=== PATIENT | male | born 1990 | race Two or more races ===

== ENCOUNTER 2019-03-09 10:54 | Emergency (ER) | payer SELFPAY ==
--- NOTE | 2019-03-09 11:33 | ER Document Report ---
ED Medical Screen (RME) - General Chief Complaint: High Blood Sugar Stated Complaint: BLOOD SUGAR ISSUES Time Seen by Provider: 03/09/19 11:25 Mode of Arrival: Ambulatory Information source: Patient Notes: Patient presents to the emergency department with complaints of high blood sugar. Reports he took it first thing this morning was over 400. Ate some crackers forgot to take his metformin. He went to work. He reports he works outside. Checked his sugar twice it was still in the 300s. Patient reports he feels body aches blurred vision. He has been hospitalized in the past for this. Reports he takes insulin at night. I have greeted and performed a rapid initial assessment of this patient. A comprehensive ED assessment and evaluation of the patient, analysis of test results and completion of the medical decision making process will be conducted by additional ED providers. Dictation of this chart was performed using voice recognition software; therefore, there may be some unintended grammatical errors. TRAVEL OUTSIDE OF THE [place] IN LAST 30 DAYS: No - Related Data Allergies/Adverse Reactions: No Known Allergies Allergy (Verified 03/09/19 10:57) Physical Exam - Vital signs Vitals: Temp Pulse Resp BP Pulse Ox 97.9 F 93 15 119/70 99 03/09/19 11:19 03/09/19 11:19 03/09/19 11:19 03/09/19 11:19 03/09/19 11:19 Course - Vital Signs Vital signs: Temp Pulse Resp BP Pulse Ox 97.9 F 93 15 119/70 99 03/09/19 11:19 03/09/19 11:19 03/09/19 11:19 03/09/19 11:19 03/09/19 11:19
[2019-03-09] MEDS ORDERED: NORMAL SALINE 1000 ML 1,000 ML IV ONE ×2 (12:09→13:21)
[2019-03-09 12:23] LABS: VENOUS BLOOD BASE EXCESS 2.1 mmol/L; VENOUS BLOOD HCO3 28.8 mmol/L (20-32); VENOUS BLOOD PCO2 52.8 mmHg (35-63); VENOUS BLOOD PH 7.36 (7.30-7.42)
[2019-03-09 12:24] LABS: ABSOLUTE EOSINOPHILS # (AUTO) 0.2 10^3/uL (0.0-0.6); ABSOLUTE MONOCYTES (AUTO) 0.7 10^3/uL (0.1-1.4); ABSOLUTE NEUT (AUTO) 6.8 10^3/uL (1.7-8.2); BASOPHILS % (AUTO) 0.5 % (0-2); EOSINOPHILS % (AUTO) 2.1 % (0-6); HEMATOCRIT 44.4 % (37.9-51.0); HEMOGLOBIN 15.6 g/dL (13.5-17.0); LYMPHOCYTES % (AUTO) 20.8 % (13-45); MEAN CORPUSCULAR HEMOGLOBIN 30.1 pg (27.0-33.4); MEAN CORPUSCULAR HGB CONC 35.1 g/dL (32.0-36.0); MEAN CORPUSCULAR VOLUME 86 fl (80-97); MONOCYTES % (AUTO) 7.2 % (3-13); PLATELET COUNT 255 10^3/uL (150-450); RED BLOOD COUNT 5.17 10^6/uL (4.35-5.55); RED CELL DISTRIBUTION WIDTH 11.6 % (11.5-14.0); SEGMENTED NEUTROPHILS % (AUTO) 69.4 % (42-78); TOTAL CELLS COUNTED % (AUTO) 100 %; WHITE BLOOD COUNT 9.8 10^3/uL (4.0-10.5)
[2019-03-09 12:33] LABS: APPEARANCE,URINE CLEAR; BILIRUBIN,URINE NEGATIVE (NEGATIVE); COLOR,URINE STRAW; GLUCOSE, URINE >=1000 mg/dL (NEGATIVE); KETONES,URINE 100 mg/dL (NEGATIVE); LEUKOCYTE ESTERASE,URINE NEGATIVE (NEGATIVE); NITRITE,URINE NEGATIVE (NEGATIVE); PROTEIN,URINE NEGATIVE (NEGATIVE); URINE SPECIFIC GRAVITY 1.009; UROBILINOGEN,URINE NEGATIVE mg/dL (<2.0)
[2019-03-09 12:40] LABS: ALANINE AMINOTRANSFERASE 32 U/L (21-72); ALBUMIN 5.4 g/dL (3.5-5.0); ALKALINE PHOSPHATASE 114 U/L (38-126); ANION GAP 17 (5-19); ASPARTATE AMINO TRANSFERASE 26 U/L (17-59); BILIRUBIN,DIRECT 0.3 mg/dL (0.0-0.4); BILIRUBIN,TOTAL 0.9 mg/dL (0.2-1.3); BLOOD UREA NITROGEN 21 mg/dL (7-20); CALCIUM 10.8 mg/dL (8.4-10.2); CARBON DIOXIDE 27 mmol/L (22-30); CHLORIDE 89 mmol/L (98-107); GLUCOSE 337 mg/dL (75-110); POTASSIUM 4.1 mmol/L (3.6-5.0); SODIUM 133.4 mmol/L (137-145); TOTAL PROTEIN 8.5 g/dL (6.3-8.2)
[2019-03-09] MEDS ORDERED: NORMAL SALINE 100 ML with INSULIN REGULAR, HUMAN 100 UNIT IV PRN ×2 (13:00)
--- NOTE | 2019-03-09 13:03 | ER Document Report ---
ED General - General Chief Complaint: High Blood Sugar Stated Complaint: BLOOD SUGAR ISSUES Time Seen by Provider: 03/09/19 11:25 Mode of Arrival: Ambulatory TRAVEL OUTSIDE OF THE [place] IN LAST 30 DAYS: No - HPI Patient complains to provider of: weakness, high blood sugar Notes: Insulin-dependent diabetic presents with increasing weakness fatigue elevated blood glucose. Patient has not had asked him to his insulin for some time. Recently moved down here from [facility]. Does not have insurance cannot afford his insulin. Denies chest pain - Related Data Allergies/Adverse Reactions: No Known Allergies Allergy (Verified 03/09/19 10:57) Past Medical History - General Information source: Patient - Social History Smoking Status: Current Every Day Smoker Family History: None Patient has suicidal ideation: No Patient has homicidal ideation: No Endocrine Medical History: Reports: Hx Diabetes Mellitus Type 1, Hx Diabetes Mellitus Type 2 Renal/ Medical History: Denies: Hx Peritoneal Dialysis Review of Systems - Review of Systems Notes: REVIEW OF SYSTEMS: CONSTITUTIONAL: -fevers, -chills EENT: -eye pain, -difficulty swallowing, -nasal congestion CARDIOVASCULAR: -chest pain, -syncope. RESPIRATORY: -cough, -SOB GASTROINTESTINAL: -abdominal pain, -nausea, -vomiting, -diarrhea GENITOURINARY: -dysuria, -hematuria MUSCULOSKELETAL: -back pain, -neck pain SKIN: -rash or skin lesions. HEMATOLOGIC: -easy bruising or bleeding. LYMPHATIC: -swollen, enlarged glands. NEUROLOGICAL: -altered mental status or loss of consciousness, -headache, - neurologic symptoms PSYCHIATRIC: -anxiety, -depression. ALL OTHER SYSTEMS REVIEWED AND NEGATIVE. Physical Exam - Vital signs Vitals: Temp Pulse Resp BP Pulse Ox 97.9 F 93 15 119/70 99 03/09/19 11:19 03/09/19 11:19 03/09/19 11:19 03/09/19 11:19 03/09/19 11:19 - Notes Notes: PHYSICAL EXAMINATION: GENERAL: Well-appearing, well-nourished and in severe acute distress. HEAD: Atraumatic, normocephalic. EYES: Pupils equal round and reactive to light, extraocular movements intact, sclera anicteric, conjunctiva are normal. ENT: nares patent, oropharynx clear without exudates. Moist mucous membranes. NECK: Normal range of motion, supple without lymphadenopathy LUNGS: Breath sounds clear to auscultation bilaterally and equal. No wheezes rales or rhonchi. HEART: tachycardia and rhythm without murmurs ABDOMEN: Soft, nontender, normoactive bowel sounds. No guarding, no rebound. No masses appreciated. EXTREMITIES: Normal range of motion, no pitting or edema. No cyanosis. NEUROLOGICAL: Cranial nerves grossly intact. Normal speech, normal gait. Normal sensory and motor exams. PSYCH: Normal mood, normal affect. SKIN: Warm, Dry, normal turgor, no rashes or lesions noted. Course - Re-evaluation Re-evalutation: 03/09/19 13:58 Vertically ill-appearing 29-year-old male presents with profound elevation in blood glucose, ketones in his urine and anion gap of 17. Patient given ample fluid resuscitation and began insulin therapy. Patient is new to the community. He is adamant he does not want to be admitted to the hospital. Have extensive conversation with patient regarding his critical condition of this could have rapid decline. Patient persists. Patient's is bedside she agrees he has decision-making capacity they will be leaving Patient's recheck glucose markedly improved as are his symptoms. No leg weakness. Patient will be discharged home improved follow-up at his family doctor. Given strict return precautions anything should change please return - Vital Signs Vital signs: Temp Pulse Resp BP Pulse Ox 97.9 F 93 15 119/70 99 03/09/19 11:19 03/09/19 11:19 03/09/19 11:19 03/09/19 11:19 03/09/19 11:19 - Laboratory Result Diagrams: 03/09/19 12:09 03/09/19 12:09 Laboratory results interpreted by me: 03/09/19 03/09/19 03/09/19 11:56 12:07 12:09 Sodium 133.4 L Chloride 89 L BUN 21 H Glucose 337 H POC Glucose 358 H Calcium 10.8 H Total Protein 8.5 H Albumin 5.4 H Urine Glucose (UA) >=1000 H Urine Ketones 100 H Urine Blood LARGE H Critical Care Note - Critical Care Note Total time excluding time spent on procedures (mins): 38 Discharge - Discharge Clinical Impression: Hyperglycemia DKA (diabetic ketoacidoses) Qualifiers: Diabetes mellitus type: other specified (including ROSIE) Diabetes mellitus complication detail: without coma Qualified Code(s): E13.10 - Other specified diabetes mellitus with ketoacidosis without coma Condition: Stable Disposition: HOME, SELF-CARE Admitting Provider: diSCHARGED Unit Admitted: Telemetry Instructions: Hyperglycemia ([facility]) Referrals: CONY JALLOH FNP-C [NO LOCAL MD] - Follow up as needed
[2019-03-09] MEDS ORDERED: INSULIN REG, HUMAN 100 UNIT/ML 3 ML VIAL (PYX) IV ONE (13:20)
[2019-03-09 15:05] VITALS: BP 102/61
== END 2019-03-09 15:05 | disposition home or self-care (01) ==
LOC: ER 10:54
DX: E11.10 Type 2 diabetes mellitus with ketoacidosis without coma (principal); T38.3X6A Underdosing of insulin and oral hypoglycemic [antidiabetic] drugs, initial encounter; Z91.120 Patient's intentional underdosing of medication regimen due to financial hardship; Z91.14 Patient's other noncompliance with medication regimen; R53.1 Weakness; R53.83 Other fatigue; F17.200 Nicotine dependence, unspecified, uncomplicated; R00.0 Tachycardia, unspecified
CPT/HCPCS: 99291; 96360; 36415; 82962; 85025; 80053; 81001; 82803; J1815; J7030

== ENCOUNTER 2019-05-09 10:06 | Inpatient (IN) | payer MEDICAID ==
[2019-05-09] MEDS ORDERED: NORMAL SALINE 1000 ML 1,000 ML IV ONE ×2 (10:07→10:20)
[2019-05-09] MEDS ORDERED: ONDANSETRON HCL INJ/PF 4 MG/2 ML SDV IV ONE (10:19)
[2019-05-09 10:28] LABS: HEMATOCRIT 47.5 % (37.9-51.0); HEMOGLOBIN 16.5 g/dL (13.5-17.0); MEAN CORPUSCULAR HGB CONC 34.7 g/dL (32.0-36.0); MEAN CORPUSCULAR VOLUME 87 fl (80-97); PLATELET COUNT 281 10^3/uL (150-450); RED BLOOD COUNT 5.48 10^6/uL (4.35-5.55); RED CELL DISTRIBUTION WIDTH 12.1 % (11.5-14.0); WHITE BLOOD COUNT 20.2 10^3/uL (4.0-10.5)
--- NOTE | 2019-05-09 10:29 | ER Document Report ---
Entered by IKER MARTIN SCRIBE 05/09/19 1025 Acting as scribe for:JAZ SHEETS MD ED Blood Pressure Problem - General Stated Complaint: BLOOD SUGAR ISSUES Time Seen by Provider: 05/09/19 10:15 Primary Care Provider: YOHANA SEBASTIAN FNP- [Primary Care Provider] - Follow up as needed Information source: Patient, Relative Notes: Patient is a 29 year old male that presents to the emergency department today with complaints of vomiting x1 week with elevated BGLs for several days. When asked what his sugars have been running, the patient states "high". Patient is not out of insulin, stating he took 20 units of Novolin R this morning prior to arrival. Patient denies any fevers or diarrhea. TRAVEL OUTSIDE OF THE [place] IN LAST 30 DAYS: No - Related Data Allergies/Adverse Reactions: No Known Allergies Allergy (Verified 03/09/19 10:57) Past Medical History - General Information source: Patient - Social History Smoking Status: Unknown if Ever Smoked Frequency of alcohol use: None Drug Abuse: None Lives with: Family Family History: None Endocrine Medical History: Reports: Hx Diabetes Mellitus Type 1, Hx Diabetes Mellitus Type 2 Review of Systems - Review of Systems Constitutional: See HPI, Other - elevated blood sugars x1 week. denies: Fever EENT: No symptoms reported Cardiovascular: No symptoms reported Respiratory: No symptoms reported Gastrointestinal: See HPI, Nausea, Vomiting. denies: Diarrhea Genitourinary: No symptoms reported Male Genitourinary: No symptoms reported Musculoskeletal: No symptoms reported Skin: No symptoms reported Hematologic/Lymphatic: No symptoms reported Neurological/Psychological: No symptoms reported -: Yes All other systems reviewed and negative Physical Exam - Vital signs Vitals: Resp Pulse Ox 19 100 05/09/19 10:09 05/09/19 10:09 - Notes Notes: Physical Exam: General: Alert, strong ketone odor. HEENT: Normocephalic. Atraumatic. PERRL. Extraocular movements intact. Oropharynx clear. Very dry mucous membranes, lips are cracked. Eyes sunken back into face. Neck: Supple. Non-tender. Respiratory: No respiratory distress. Clear and equal breath sounds bilaterally. Cardiovascular: Tachycardic, regular rhythm. Abdominal: Normal Inspection. Non-tender. No distension. Normal Bowel Sounds. Back: No gross abnormalities. Extremities: Moves all four extremities. Upper extremities: Normal inspection. Normal ROM. Lower extremities: Normal inspection. No edema. Normal ROM. Neurological: Normal cognition. AAOx4. Normal speech. Psychological: Normal affect. Normal Mood. Skin: Warm. Dry. Normal color. Course - Vital Signs Vital signs: Temp Pulse Resp BP Pulse Ox 98.4 F 21 H 144/92 H 100 05/09/19 10:14 05/09/19 10:14 05/09/19 10:14 05/09/19 10:14 - Laboratory Result Diagrams: 05/09/19 10:10 05/09/19 10:10 Laboratory results interpreted by me: 05/09/19 05/09/19 05/09/19 10:10 10:10 10:49 WBC 20.2 H Seg Neuts % (Manual) 88 H Lymphocytes % (Manual) 8 L Abs Neuts (Manual) 17.8 H Sodium 129.0 L Chloride 79 L Carbon Dioxide 20 L Anion Gap 30 H BUN 42 H Glucose 394 H Magnesium 2.8 H Total Bilirubin 1.4 H Albumin 5.3 H Urine Glucose (UA) >=500 H Urine Ketones 80 H Urine Blood MODERATE H - EKG Interpretation by Me EKG shows normal: Sinus rhythm, [place], QRS Complexes, ST-T Waves. abnormal: Intervals - Borderline prolonged QT interval Rate: Tachycardia - 107 - Consults Dr. Chaudhary Time consulted: 11:45 Consulted provider: will come to ER Critical Care Note - Critical Care Note Total time excluding time spent on procedures (mins): 35 Discharge - Discharge Clinical Impression: Hyperglycemia, Dehydration, Acute kidney injury Nausea and vomiting Qualifiers: Vomiting type: unspecified Vomiting Intractability: non-intractable Qualified Code(s): R11.2 - Nausea with vomiting, unspecified Diabetic ketoacidosis associated with type 2 diabetes mellitus Qualifiers: Diabetes mellitus complication detail: without coma Qualified Code(s): E11.10 - Type 2 diabetes mellitus with ketoacidosis without coma Condition: Stable Disposition: ADMITTED INPATIENT Admitting Provider: Neena (Hospitalist) Unit Admitted: IMCU Referrals: YOHANA SEBASTIAN, [employer] [Primary Care Provider] - Follow up as needed Scribe Attestation: 05/09/19 11:50 I personally performed the services described in the documentation, reviewed and edited the documentation which was dictated to the scribe in my presence, and it accurately records my words and actions. I personally performed the services described in the documentation, reviewed and edited the documentation which was dictated to the scribe in my presence, and it accurately records my words and actions.
[2019-05-09 10:47] LABS: ABSOLUTE LYMPHOCYTES# (MANUAL) 1.6 10^3/uL (0.5-4.7); ABSOLUTE MONOCYTES # (MANUAL) 0.8 10^3/uL (0.1-1.4); ALBUMIN 5.3 g/dL (3.5-5.0); ALKALINE PHOSPHATASE 117 U/L (38-126); ASPARTATE AMINO TRANSFERASE 22 U/L (17-59); BASOPHILS % (MANUAL) 0 % (0-2); BILIRUBIN,DIRECT 0.3 mg/dL (0.0-0.4); BILIRUBIN,TOTAL 1.4 mg/dL (0.2-1.3); BLOOD UREA NITROGEN 42 mg/dL (7-20); CALCIUM 10.1 mg/dL (8.4-10.2); CARBON DIOXIDE 20 mmol/L (22-30); EOSINOPHILS % (MANUAL) 0 % (0-6); GLUCOSE 394 mg/dL (75-110); LYMPHOCYTES % (MANUAL) 8 % (13-45); MONOCYTES % (MANUAL) 4 % (3-13); POTASSIUM 3.8 mmol/L (3.6-5.0); SEGMENTED NEUTROPHILS % (MAN) 88 % (42-78); TOTAL CELLS COUNTED 100; TOTAL PROTEIN 8.2 g/dL (6.3-8.2)
[2019-05-09 10:48] LABS: OVALOCYTES SLIGHT; PLATELET COMMENT ADEQUATE; POIKILOCYTOSIS SLIGHT
[2019-05-09 10:51] LABS: CHLORIDE 79 mmol/L (98-107)
[2019-05-09 10:56] LABS: ANION GAP 30 (5-19)
[2019-05-09] MEDS ORDERED: RINGERS SOLUTION,LACTATED 1,000 ML IV ONE (11:03)
[2019-05-09 11:05] LABS: APPEARANCE,URINE CLEAR; BILIRUBIN,URINE NEGATIVE (NEGATIVE); COLOR,URINE YELLOW; GLUCOSE, URINE >=500 mg/dL (NEGATIVE); KETONES,URINE 80 mg/dL (NEGATIVE); LEUKOCYTE ESTERASE,URINE NEGATIVE (NEGATIVE); NITRITE,URINE NEGATIVE (NEGATIVE); PROTEIN,URINE NEGATIVE (NEGATIVE); URINE SPECIFIC GRAVITY 1.023; UROBILINOGEN,URINE NEGATIVE mg/dL (<2.0)
[2019-05-09 12:15] LABS: URINE AMPHETAMINES SCREEN NEGATIVE; URINE BARBITURATES SCREEN NEGATIVE; URINE BENZODIAZEPINES SCREEN NEGATIVE; URINE COCAINE SCREEN NEGATIVE; URINE MARIJUANA (THC) SCREEN UNCONFIRMED POSITIVE; URINE METHADONE SCREEN NEGATIVE; URINE PHENCYCLIDINE SCREEN NEGATIVE
[2019-05-09] MEDS ORDERED: ACETAMINOPHEN 325 MG TABLET PO PRN (12:26)
[2019-05-09] MEDS ORDERED: DEXTROSE 50%-WATER 25 GM/50 ML DISP.SYRIN IV PRN ×2 (12:31)
[2019-05-09] MEDS ORDERED: DEXTROSE 40% GEL 15 GM TUBE PO PRN ×2 (12:31)
[2019-05-09] MEDS ORDERED: GLUCAGON,HUMAN RECOMB 1 MG INJ IM PRN (12:31)
--- NOTE | 2019-05-09 12:47 | PDOC H&P ---
History of Present Illness Admission Date/PCP: YOHANA SEBASTIAN, SUME[facility]INA Patient complains of: Nausea vomiting for 6 days History of Present Illness: OLIVIA DRISCOLL is a 29 year old male history of type 2 diabetes mellitus, depression came to the emergency room with complaints of nausea vomiting associated with abdominal pain normal bowel movement for last 6 days. Patient barely able to drink water and throwing up everything else. Denies any fever but complaining of dry cough associated with chills and sweats. Denies any rashes. Denies any problems with urination. He said he is compliant with his medications and it and took his insulin this morning. Work-up in the emergency room indicates blood sugar of 394 and serum sodium of 129 and creatinine of 1.24 with urine ketones more than 80. Medical consult was called for admission. 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 Children Family History Reviewed: Yes Sibling(s) Family History Reviewed.: Yes Medication/Allergy Allergies/Adverse Reactions: No Known Allergies Allergy (Verified 03/09/19 10:57) Review of Systems Constitutional: PRESENT: fatigue, weakness. ABSENT: fever(s), weight gain, weight loss Eyes: ABSENT: visual disturbances Ears: ABSENT: hearing changes Nose, Mouth, and Throat: ABSENT: sore throat Cardiovascular: ABSENT: palpitations Respiratory: ABSENT: hemoptysis Gastrointestinal: PRESENT: abdominal pain, constipation, nausea, vomiting Genitourinary: ABSENT: dysuria, hematuria Musculoskeletal: ABSENT: joint swelling Integumentary: ABSENT: rash, wounds Neurological: ABSENT: abnormal gait, abnormal speech, confusion, dizziness, focal weakness, syncope Psychiatric: ABSENT: anxiety, depression, homidical ideation, suicidal ideation Endocrine: ABSENT: cold intolerance, heat intolerance, polydipsia, polyuria Physical Exam Vital Signs: Temp Pulse Resp BP Pulse Ox 97.6 F 18 130/86 H 99 05/09/19 12:00 05/09/19 12:01 05/09/19 12:00 05/09/19 12:01 Intake & Output 05/08/19 05/09/19 05/10/19 06:59 06:59 06:59 Intake Total 3000 Balance 3000 Weight 69.853 kg General appearance: PRESENT: other - Moderate distress Head exam: PRESENT: atraumatic Eye exam: PRESENT: PERRLA Ear exam: PRESENT: normal external ear exam Mouth exam: PRESENT: neck supple Neck exam: ABSENT: carotid bruit, JVD, lymphadenopathy, thyromegaly Respiratory exam: PRESENT: decreased breath sounds Cardiovascular exam: PRESENT: RRR. ABSENT: diastolic murmur, rubs, systolic mu rmur GI/Abdominal exam: PRESENT: normal bowel sounds, soft. ABSENT: distended, guarding, mass, organolmegaly, rebound, tenderness Rectal exam: PRESENT: deferred Extremities exam: PRESENT: full ROM. ABSENT: calf tenderness, clubbing, pedal edema Neurological exam: PRESENT: alert, awake, oriented to person, oriented to place, oriented to time, oriented to situation, CN II-XII grossly intact. ABSENT: motor sensory deficit Psychiatric exam: PRESENT: appropriate affect, normal mood. ABSENT: homicidal ideation, suicidal ideation Results Laboratory Results: 05/09/19 10:10 05/09/19 10:10 05/09/19 05/09/19 05/09/19 10:10 10:10 10:49 WBC 20.2 H RBC 5.48 Hgb 16.5 Hct 47.5 MCV 87 MCH 30.0 MCHC 34.7 RDW 12.1 Plt Count 281 Seg Neutrophils % Not Reportable Sodium 129.0 L Potassium 3.8 Chloride 79 L Carbon Dioxide 20 L Anion Gap 30 H BUN 42 H Creatinine 1.24 Est GFR ( Amer) > 60 Glucose 394 H Calcium 10.1 Magnesium 2.8 H Total Bilirubin 1.4 H AST 22 Alkaline Phosphatase 117 Total Protein 8.2 Albumin 5.3 H Urine Color YELLOW Urine Appearance CLEAR Urine pH 6.0 Ur Specific [place] 1.023 Urine Protein NEGATIVE Urine Glucose (UA) >=500 H Urine Ketones 80 H Urine Blood MODERATE H Urine Nitrite NEGATIVE Ur Leukocyte Esterase NEGATIVE Urine WBC (Auto) 2 Urine RBC (Auto) 6 Assessment and Plan - Diagnosis (1) Hyperglycemia Is this a current diagnosis for this admission?: Yes Plan: 05/09/2019-patient came in with high blood sugars associated with nausea and vomitings urinalysis shows ketones of 80 blood sugar of 349 and serum sodium of 129. And creatinine also 1.24. Patient is going to be admitted to [facility] started on normal saline at 125 cc/h, started on diabetic diet, Lantus 15 units twice a day, insulin sliding scale. GI prophylaxis DVT prophylaxis initiated blood cultures urine cultures are requested started on IV Rocephin. Dietary consult was requested. (2) Acute kidney injury Is this a current diagnosis for this admission?: Yes Plan: 05/09/2019-patient came in with acute kidney injury creatinine of 1.24 plan to give him IV fluids normal saline at 125 cc/h. (3) Nausea and vomiting Qualifiers: Vomiting type: unspecified Vomiting Intractability: non-intractable Qualified Code(s): R11.2 - Nausea with vomiting, unspecified Is this a current diagnosis for this admission?: Yes Plan: 05/09/2019-patient came in with complaints of nausea and vomitings's to start the patient on Phenergan 25 mg IV every 6 as needed. Nausea and vomiting's most likely secondary to uncontrolled diabetes mellitus leading to gastroparesis. (4) Hyponatremia Is this a current diagnosis for this admission?: Yes Plan: 05/09/2019-serum sodium is 129, blood sugar is around 400 corrected serum sodium is around 134. Started on normal saline at 125 cc/h. (5) Depression Is this a current diagnosis for this admission?: No Plan: 05/09/2019-patient has history of depression taking Effexor at home plan is to resume Effexor during the hospital stay. - Time Time Spent with patient: 25-34 minutes Medications reviewed and adjusted accordingly: Yes Anticipated discharge: Home
--- NOTE | 2019-05-09 12:50 | Progress Note ---
Provider Note Provider Note: 05/09/19-leukocytosis may be sec to reactive leukocytosis.. sepsis work up started.
--- NOTE | 2019-05-09 13:05 | RADIOLOGY REPORT (SQ) ---
EXAM DESCRIPTION: CHEST SINGLE VIEW COMPLETED DATE/TIME: 05/09/2019 12:53 pm REASON FOR STUDY: shortness of breath COMPARISON: None. NUMBER OF VIEWS: One view. TECHNIQUE: Single frontal radiographic image of the chest acquired. LIMITATIONS: None. FINDINGS: LUNGS AND PLEURA: Stable appearance. MEDIASTINUM AND HILAR STRUCTURES: Stable heart size and mediastinal structures. HEART AND VASCULAR STRUCTURES: Stable appearance. SUPPORT DEVICES: Appropriate location without change. BONES: No acute findings. OTHER: No other significant finding. IMPRESSION: STABLE APPEARANCE OF THE CHEST. SUPPORT DEVICES UNCHANGED. TECHNICAL DOCUMENTATION: JOB ID: [id number] [employer]- All Rights Reserved Reading location - IP/workstation name: [email or web address]
[2019-05-09 13:17] LABS: PROTHROMBIN TIME 15.2 SEC (11.4-15.4)
[2019-05-09] MEDS: NORMAL SALINE 1000 ML 1,000 ML IV PRN ×2 (13:20→22:00)
[2019-05-09] MEDS: PROMETHAZINE HCL INJ 25 MG/1 ML VIAL IV PRN ×3 (13:25→21:02)
[2019-05-09] MEDS: CEFTRIAXONE 2 GM/D5W RTU 2 GM/50 ML RTUPB IV SCH (13:27)
[2019-05-09] MEDS ORDERED: INSULIN GLARGINE,HUM.REC.ANLOG 1,000 UNIT/10 ML VIAL SUBCUT SCH ×2 (13:30→22:00)
[2019-05-09 13:31] LABS: CREATINE KINASE MB 0.38 ng/mL (<4.55)
[2019-05-09 13:34] LABS: TROPONIN I < 0.012 ng/mL
[2019-05-09] MEDS: VENLAFAXINE HCL 37.5 MG CAP.SR.24H PO SCH (13:38)
[2019-05-09] MEDS ORDERED: INSULIN REG, HUMAN 100 UNIT/ML 3 ML VIAL (PYX) ONE (13:45)
[2019-05-09] MEDS ORDERED: INSULIN REG, HUMAN 100 UNIT/ML 3 ML VIAL (PYX) SUBCUT ONE (13:46)
[2019-05-09 14:48] LABS: ARTERIAL BLOOD BASE EXCESS 2.6 mmol/L; ARTERIAL BLOOD H2CO3 0.63 mmol/L (1.05-1.35); ARTERIAL BLOOD HCO3 21.4 mmol/L (20-24); ARTERIAL BLOOD O2 SATURATION 98.8 % (94-98); ARTERIAL BLOOD PO2 110.2 mmHg (80-100); ARTERIAL BLOOD TOTAL CO2 22.1 mmol/L (23-27)
[2019-05-09 14:50] LABS: ARTERIAL BLOOD FIO2 ROOM AIR
[2019-05-09 14:51] LABS: ARTERIAL BLOOD PCO2 20.9 mmHg (35-45); ARTERIAL BLOOD PH 7.63 (7.35-7.45)
[2019-05-09] MEDS: PANTOPRAZOLE SODIUM 40 MG TABLET.DR PO SCH (16:38)
[2019-05-09] MEDS: INSULIN REG, HUMAN 100 UNIT/ML 3 ML VIAL (PYX) SUBCUT SCH ×2 (16:38→21:45)
[2019-05-09 19:43] LABS: CREATINE KINASE MB 0.25 ng/mL (<4.55); TROPONIN I 0.012 ng/mL
[2019-05-09] MEDS: INSULIN GLARGINE,HUM.REC.ANLOG 1,000 UNIT/10 ML VIAL SUBCUT SCH (22:10)
[2019-05-10 01:46] LABS: TROPONIN I 0.015 ng/mL
[2019-05-10 01:54] LABS: CREATINE KINASE MB < 0.22 ng/mL (<4.55)
[2019-05-10] MEDS: PROMETHAZINE HCL INJ 25 MG/1 ML VIAL IV PRN ×2 (01:57→05:59)
[2019-05-10] MEDS: PANTOPRAZOLE SODIUM 40 MG TABLET.DR PO SCH ×2 (05:58→18:37)
[2019-05-10] MEDS: NORMAL SALINE 1000 ML 1,000 ML IV PRN (06:04)
[2019-05-10 06:52] LABS: APPEARANCE,URINE CLEAR; BILIRUBIN,URINE NEGATIVE (NEGATIVE); COLOR,URINE YELLOW; GLUCOSE, URINE 50 mg/dL (NEGATIVE); KETONES,URINE 80 mg/dL (NEGATIVE); LEUKOCYTE ESTERASE,URINE NEGATIVE (NEGATIVE); NITRITE,URINE NEGATIVE (NEGATIVE); PROTEIN,URINE NEGATIVE (NEGATIVE); URINE SPECIFIC GRAVITY 1.015; UROBILINOGEN,URINE NEGATIVE mg/dL (<2.0)
[2019-05-10 08:23] LABS: ABSOLUTE LYMPHOCYTES (AUTO) 1.4 10^3/uL (0.5-4.7); ABSOLUTE MONOCYTES (AUTO) 0.8 10^3/uL (0.1-1.4); ABSOLUTE NEUT (AUTO) 8.2 10^3/uL (1.7-8.2); BASOPHILS % (AUTO) 0.1 % (0-2); EOSINOPHILS % (AUTO) 0.1 % (0-6); HEMATOCRIT 39.1 % (37.9-51.0); LYMPHOCYTES % (AUTO) 13.6 % (13-45); MEAN CORPUSCULAR HEMOGLOBIN 30.7 pg (27.0-33.4); MEAN CORPUSCULAR VOLUME 88 fl (80-97); PLATELET COUNT 173 10^3/uL (150-450); RED BLOOD COUNT 4.45 10^6/uL (4.35-5.55); RED CELL DISTRIBUTION WIDTH 11.9 % (11.5-14.0); SEGMENTED NEUTROPHILS % (AUTO) 78.2 % (42-78); TOTAL CELLS COUNTED % (AUTO) 100 %; WHITE BLOOD COUNT 10.6 10^3/uL (4.0-10.5)
[2019-05-10 08:25] LABS: HEMOGLOBIN 13.7 g/dL (13.5-17.0)
[2019-05-10 08:36] LABS: ALBUMIN 3.8 g/dL (3.5-5.0); ALKALINE PHOSPHATASE 71 U/L (38-126); ANION GAP 11 (5-19); ASPARTATE AMINO TRANSFERASE 17 U/L (17-59); BILIRUBIN,DIRECT 0.2 mg/dL (0.0-0.4); BILIRUBIN,TOTAL 0.7 mg/dL (0.2-1.3); CARBON DIOXIDE 27 mmol/L (22-30); CHLORIDE 97 mmol/L (98-107); CHOLESTEROL 146.38 mg/dL (0-200); GLUCOSE 134 mg/dL (75-110); POTASSIUM 3.4 mmol/L (3.6-5.0); TOTAL PROTEIN 6.1 g/dL (6.3-8.2); TRIGLYCERIDES 91 mg/dL (<150)
[2019-05-10 08:47] LABS: DIRECT LDL 89 mg/dL (<100)
[2019-05-10 08:51] LABS: BLOOD UREA NITROGEN 18 mg/dL (7-20)
[2019-05-10] MEDS ORDERED: (PENDING PHARMACY ID) (Hydroxyzine Hcl [Atarax 25 Mg Tablet] 25 MG) PO PRN (10:00)
[2019-05-10] MEDS ORDERED: MAG HYDROX/AL HYDROX/SIMETH SUSP 30 ML UDCUP PO PRN (10:00)
[2019-05-10] MEDS ORDERED: ONDANSETRON HCL INJ/PF 4 MG/2 ML SDV IV PRN (10:00)
--- NOTE | 2019-05-10 10:05 | PDOC PROGRESS REPORT ---
Subjective Progress Note for:: 05/10/19 Subjective:: 29 year old male history of type 2 diabetes mellitus, depression came to the emergency room with complaints of nausea vomiting associated with abdominal pain normal bowel movement for last 6 days. Patient barely able to drink water and throwing up everything else. Denies any fever but complaining of dry cough associated with chills and sweats. Denies any rashes. Denies any problems with urination. He said he is compliant with his medications and it and took his insulin this morning. Work-up in the emergency room indicates blood sugar of 394 and serum sodium of 129 and creatinine of 1.24 with urine ketones more than 80. Medical consult was called for admission. 05/10/2019-no acute events in the last 24 hours. Patient is afebrile. Blood sugars are much better. Hemoglobin A1c came back 10.2. Latest blood sugar is 134. Plan is to continue the present management. Reason For Visit: HYPERGLYCEMIA,NAUSEA AND VOMITING,DEHYDRATION Physical Exam Vital Signs: Temp Pulse Resp BP Pulse Ox 99.4 F 97 22 H 121/72 98 05/10/19 05:24 05/10/19 07:00 05/10/19 05:24 05/10/19 05:24 05/10/19 05:24 Intake & Output 05/09/19 05/10/19 05/11/19 06:59 06:59 06:59 Intake Total 5750 Output Total 1300 Balance 4450 Weight 68.4 kg General appearance: PRESENT: no acute distress, cooperative Head exam: PRESENT: atraumatic Eye exam: PRESENT: PERRLA Mouth exam: PRESENT: moist, tongue midline Teeth exam: PRESENT: poor dentation Neck exam: ABSENT: carotid bruit, JVD, lymphadenopathy, thyromegaly Respiratory exam: PRESENT: decreased breath sounds Cardiovascular exam: PRESENT: RRR. ABSENT: diastolic murmur, rubs, systolic murmur GI/Abdominal exam: PRESENT: normal bowel sounds, soft. ABSENT: distended, guarding, mass, organolmegaly, rebound, tenderness Rectal exam: PRESENT: deferred Extremities exam: PRESENT: full ROM. ABSENT: calf tenderness, clubbing, pedal edema Neurological exam: PRESENT: alert, awake, oriented to person, oriented to place, oriented to time, oriented to situation, CN II-XII grossly intact. ABSENT: motor sensory deficit Psychiatric exam: PRESENT: appropriate affect, normal mood. ABSENT: homicidal ideation, suicidal ideation Results Laboratory Results: 05/10/19 07:50 05/10/19 07:50 05/09/19 05/09/19 05/09/19 10:10 10:10 10:49 WBC 20.2 H RBC 5.48 Hgb 16.5 Hct 47.5 MCV 87 MCH 30.0 MCHC 34.7 RDW 12.1 Plt Count 281 Seg Neutrophils % Not Reportable Carbonic Acid HCO3/H2CO3 Ratio ABG pH ABG pCO2 ABG pO2 ABG HCO3 ABG O2 Saturation ABG Base Excess FiO2 Sodium 129.0 L Potassium 3.8 Chloride 79 L Carbon Dioxide 20 L Anion Gap 30 H BUN 42 H Creatinine 1.24 Est GFR ( Amer) > 60 Glucose 394 H Calcium 10.1 Magnesium 2.8 H Total Bilirubin 1.4 H AST 22 Alkaline Phosphatase 117 Total Protein 8.2 Albumin 5.3 H Triglycerides Cholesterol LDL Cholesterol Direct VLDL Cholesterol HDL Cholesterol TSH Urine Color YELLOW Urine Appearance CLEAR Urine pH 6.0 Ur Specific Morton 1.023 Urine Protein NEGATIVE Urine Glucose (UA) >=500 H Urine Ketones 80 H Urine Blood MODERATE H Urine Nitrite NEGATIVE Ur Leukocyte Esterase NEGATIVE Urine WBC (Auto) 2 Urine RBC (Auto) 6 05/09/19 05/10/19 05/10/19 14:40 06:08 07:50 WBC 10.6 H RBC 4.45 Hgb 13.7 D Hct 39.1 MCV 88 MCH 30.7 MCHC 35.0 RDW 11.9 Plt Count 173 Seg Neutrophils % 78.2 H Carbonic Acid 0.63 L HCO3/H2CO3 Ratio 33:1 ABG pH 7.63 H* ABG pCO2 20.9 L* ABG pO2 110.2 H ABG HCO3 21.4 ABG O2 Saturation 98.8 H ABG Base Excess 2.6 FiO2 ROOM AIR Sodium Potassium Chloride Carbon Dioxide Anion Gap BUN Creatinine Est GFR ( Amer) Glucose Calcium Magnesium Total Bilirubin AST Alkaline Phosphatase Total Protein Albumin Triglycerides Cholesterol LDL Cholesterol Direct VLDL Cholesterol HDL Cholesterol TSH Urine Color YELLOW Urine Appearance CLEAR Urine pH 7.0 Ur Specific Morton 1.015 Urine Protein NEGATIVE Urine Glucose (UA) 50 H Urine Ketones 80 H Urine Blood NEGATIVE Urine Nitrite NEGATIVE Ur Leukocyte Esterase NEGATIVE Urine WBC (Auto) 1 Urine RBC (Auto) 2 05/10/19 05/10/19 07:50 07:50 WBC RBC Hgb Hct MCV MCH MCHC RDW Plt Count Seg Neutrophils % Carbonic Acid HCO3/H2CO3 Ratio ABG pH ABG pCO2 ABG pO2 ABG HCO3 ABG O2 Saturation ABG Base Excess FiO2 Sodium 134.7 L Potassium 3.4 L Chloride 97 L Carbon Dioxide 27 Anion Gap 11 BUN 18 D Creatinine 0.84 Est GFR ( Amer) > 60 Glucose 134 H Calcium 9.0 Magnesium 2.4 H Total Bilirubin 0.7 AST 17 Alkaline Phosphatase 71 Total Protein 6.1 L Albumin 3.8 Triglycerides 91 Cholesterol 146.38 LDL Cholesterol Direct 89 VLDL Cholesterol 18.0 HDL Cholesterol 45 TSH 0.34 L Urine Color Urine Appearance Urine pH Ur Specific Morton Urine Protein Urine Glucose (UA) Urine Ketones Urine Blood Urine Nitrite Ur Leukocyte Esterase Urine WBC (Auto) Urine RBC (Auto) 05/09/19 05/09/19 05/09/19 10:10 10:10 18:58 Creatine Kinase 109 106 CK-MB (CK-2) 0.38 Troponin I < 0.012 05/09/19 05/10/19 05/10/19 18:58 00:58 00:58 Creatine Kinase 81 CK-MB (CK-2) 0.25 < 0.22 Troponin I 0.012 0.015 Impressions: Chest X-Ray 05/09/19 12:30 IMPRESSION: STABLE APPEARANCE OF THE CHEST. SUPPORT DEVICES UNCHANGED. Assessment and Plan - Diagnosis (1) Hyperglycemia Is this a current diagnosis for this admission?: Yes Plan: 05/09/2019-patient came in with high blood sugars associated with nausea and vomitings urinalysis shows ketones of 80 blood sugar of 349 and serum sodium of 129. And creatinine also 1.24. Patient is going to be admitted to [facility] started on normal saline at 125 cc/h, started on diabetic diet, Lantus 15 units twice a day, insulin sliding scale. GI prophylaxis DVT prophylaxis initiated blood cultures urine cultures are requested started on IV Rocephin. Dietary consult was requested. 05/10/2019-patient came in with high blood sugars presently on Lantus 15 units twice a day and insulin sliding scale and IV fluids normal saline at 125 cc/h, hemoglobin A1c came back 10.2 latest blood sugar is 138 again diet compliance of medication was advised plan is to continue the present management at this point. (2) Acute kidney injury Is this a current diagnosis for this admission?: Yes Plan: 05/09/2019-patient came in with acute kidney injury creatinine of 1.24 plan to give him IV fluids normal saline at 125 cc/h. 05/10/2019-patient came in with creatinine 1.24 latest creatinine is 0.08. ANABELA most likely secondary to prerenal causes resolved. (3) Nausea and vomiting Qualifiers: Vomiting type: unspecified Vomiting Intractability: non-intractable Qualified Code(s): R11.2 - Nausea with vomiting, unspecified Is this a current diagnosis for this admission?: Yes Plan: 05/09/2019-patient came in with complaints of nausea and vomitings's to start the patient on Phenergan 25 mg IV every 6 as needed. Nausea and vomiting's most l ikely secondary to uncontrolled diabetes mellitus leading to gastroparesis. 05/10/2019-still complaining of nausea vomiting as per his girlfriend he threw up a loose green bile this morning. Plan is to do the ultrasound the gallbladder. (4) Hyponatremia Is this a current diagnosis for this admission?: Yes Plan: 05/09/2019-serum sodium is 129, blood sugar is around 400 corrected serum sodium is around 134. Started on normal saline at 125 cc/h. 05/10/2019-patient came in with serum sodium of 129 corrected serum sodium is around 134 today serum sodium is 134.7 hyponatremia due to dehydration and nausea vomiting resolved. (5) Depression Is this a current diagnosis for this admission?: No - Time Time Spent with patient: 15-24 minutes Medications reviewed and adjusted accordingly: Yes Anticipated discharge: Home
[2019-05-10] MEDS ORDERED: HYDROXYZINE PAMOATE 25 MG CAPSULE PO PRN (10:06)
[2019-05-10] MEDS: INSULIN REG, HUMAN 100 UNIT/ML 3 ML VIAL (PYX) SUBCUT SCH ×4 (10:23→22:43)
[2019-05-10] MEDS: METFORMIN HCL 500 MG TABLET PO SCH ×2 (10:31→18:36)
[2019-05-10] MEDS: VENLAFAXINE HCL 37.5 MG CAP.SR.24H PO SCH (10:31)
[2019-05-10] MEDS: ENOXAPARIN SODIUM INJ 40 MG/0.4 ML DISP.SYRIN SUBCUT SCH (10:34)
[2019-05-10] MEDS: CEFTRIAXONE 2 GM/D5W RTU 2 GM/50 ML RTUPB IV SCH (10:44)
[2019-05-10] MEDS: INSULIN GLARGINE,HUM.REC.ANLOG 1,000 UNIT/10 ML VIAL SUBCUT SCH (17:03)
[2019-05-10] MEDS: LORAZEPAM INJ 2 MG/1 ML VIAL IV PRN (19:26)
[2019-05-11 06:36] LABS: ABSOLUTE EOSINOPHILS # (AUTO) 0.1 10^3/uL (0.0-0.6); ABSOLUTE LYMPHOCYTES (AUTO) 2.2 10^3/uL (0.5-4.7); ABSOLUTE MONOCYTES (AUTO) 0.7 10^3/uL (0.1-1.4); ABSOLUTE NEUT (AUTO) 4.4 10^3/uL (1.7-8.2); BASOPHILS % (AUTO) 0.2 % (0-2); EOSINOPHILS % (AUTO) 1.1 % (0-6); HEMATOCRIT 38.8 % (37.9-51.0); HEMOGLOBIN 13.6 g/dL (13.5-17.0); LYMPHOCYTES % (AUTO) 29.3 % (13-45); MEAN CORPUSCULAR HEMOGLOBIN 30.4 pg (27.0-33.4); MEAN CORPUSCULAR HGB CONC 35.1 g/dL (32.0-36.0); MEAN CORPUSCULAR VOLUME 87 fl (80-97); MONOCYTES % (AUTO) 9.5 % (3-13); PLATELET COUNT 163 10^3/uL (150-450); RED BLOOD COUNT 4.49 10^6/uL (4.35-5.55); SEGMENTED NEUTROPHILS % (AUTO) 59.9 % (42-78); TOTAL CELLS COUNTED % (AUTO) 100 %; WHITE BLOOD COUNT 7.4 10^3/uL (4.0-10.5)
[2019-05-11] MEDS: PANTOPRAZOLE SODIUM 40 MG TABLET.DR PO SCH (06:41)
[2019-05-11 06:57] LABS: ALBUMIN 3.8 g/dL (3.5-5.0); ALKALINE PHOSPHATASE 72 U/L (38-126); ANION GAP 11 (5-19); ASPARTATE AMINO TRANSFERASE 15 U/L (17-59); BILIRUBIN,DIRECT 0.2 mg/dL (0.0-0.4); BILIRUBIN,TOTAL 0.5 mg/dL (0.2-1.3); BLOOD UREA NITROGEN 14 mg/dL (7-20); CALCIUM 9.1 mg/dL (8.4-10.2); CARBON DIOXIDE 25 mmol/L (22-30); CHLORIDE 98 mmol/L (98-107); GLUCOSE 203 mg/dL (75-110); POTASSIUM 3.7 mmol/L (3.6-5.0)
[2019-05-11] MEDS: INSULIN REG, HUMAN 100 UNIT/ML 3 ML VIAL (PYX) SUBCUT SCH ×2 (08:19→12:23)
--- NOTE | 2019-05-11 08:41 | RADIOLOGY REPORT (SQ) ---
EXAM DESCRIPTION: U/S ABDOMEN LIMITED W/O DOP COMPLETED DATE/TIME: 05/11/2019 6:04 am REASON FOR STUDY: billious vomitings COMPARISON: None. TECHNIQUE: Dynamic and static grayscale images acquired of the abdomen and recorded on PACS. Additio nal selected color Doppler and spectral images recorded. LIMITATIONS: None. FINDINGS: PANCREAS: No masses. Visualized pancreatic duct normal caliber. LIVER: No masses. Echotexture normal. LIVER VASCULATURE: Normal directional flow of the main portal vein and hepatic veins. GALLBLADDER: No stones. Normal wall thickness. No pericholecystic fluid. ULTRASOUND-DETECTED THOMPSON'S SIGN: Negative. INTRAHEPATIC DUCTS AND COMMON DUCT: CBD and intrahepatic ducts normal caliber. No filling defects. INFERIOR VENA CAVA: Normal flow. AORTA: No aneurysm. RIGHT KIDNEY: Normal size. Normal echogenicity. No solid or suspicious masses. No hydronephrosis. No calcifications. PERITONEAL AND RIGHT PLEURAL SPACE: No ascites or effusions. OTHER: No other significant findings. IMPRESSION: NORMAL RIGHT UPPER QUADRANT ULTRASOUND. TECHNICAL DOCUMENTATION: JOB ID: [id number] [employer]- All Rights Reserved Reading location - IP/workstation name: [email or web address]
[2019-05-11 09:15] VITALS: BP 129/87
[2019-05-11] MEDS ORDERED: INSULIN GLARGINE,HUM.REC.ANLOG 1,000 UNIT/10 ML VIAL SUBCUT SCH ×2 (10:00)
[2019-05-11] MEDS: METFORMIN HCL 500 MG TABLET PO SCH (10:54)
[2019-05-11] MEDS: VENLAFAXINE HCL 37.5 MG CAP.SR.24H PO SCH (10:54)
[2019-05-11] MEDS: ENOXAPARIN SODIUM INJ 40 MG/0.4 ML DISP.SYRIN SUBCUT SCH (10:59)
[2019-05-11] MEDS: LORAZEPAM INJ 2 MG/1 ML VIAL IV PRN (11:02)
--- NOTE | 2019-05-11 11:08 | PDOC PROGRESS REPORT ---
Subjective Progress Note for:: 05/11/19 Subjective:: 29 year old male history of type 2 diabetes mellitus, depression came to the emergency room with complaints of nausea vomiting associated with abdominal pain normal bowel movement for last 6 days. Patient barely able to drink water and throwing up everything else. Denies any fever but complaining of dry cough associated with chills and sweats. Denies any rashes. Denies any problems with urination. He said he is compliant with his medications and it and took his insulin this morning. Work-up in the emergency room indicates blood sugar of 394 and serum sodium of 129 and creatinine of 1.24 with urine ketones more than 80. Medical consult was called for admission. 05/10/2019-no acute events in the last 24 hours. Patient is afebrile. Blood sugars are much better. Hemoglobin A1c came back 10.2. Latest blood sugar is 134. Plan is to continue the present management. 05/[id number]-niza-old male with history of type 2 diabetes mellitus admitted with uncontrolled blood sugars due to noncompliance. He also came in with complaints of nausea vomitings those things are resolved. Blood sugars are much improved. Hemoglobin A1c came back 10.2 discussed compliance with medication and diet with the patient and is going home today.. Reason For Visit: HYPERGLYCEMIA,NAUSEA AND VOMITING,DEHYDRATION Physical Exam Vital Signs: Temp Pulse Resp BP Pulse Ox 98.9 F 110 H 18 129/87 H 100 05/11/19 07:48 05/11/19 07:48 05/11/19 07:48 05/11/19 07:48 05/11/19 07:48 Intake & Output 05/10/19 05/11/19 05/12/19 06:59 06:59 06:59 Intake Total 5750 2011 Output Total 1300 300 Balance 4450 1712 Weight 68.4 kg 69.4 kg General appearance: PRESENT: no acute distress Head exam: PRESENT: atraumatic Eye exam: PRESENT: PERRLA Teeth exam: PRESENT: dental caries Neck exam: ABSENT: carotid bruit, JVD, lymphadenopathy, thyromegaly Respiratory exam: PRESENT: decreased breath sounds Cardiovascular exam: PRESENT: RRR. ABSENT: diastolic murmur, rubs, systolic mur mur Pulses: PRESENT: normal dorsalis pedis pul GI/Abdominal exam: PRESENT: normal bowel sounds, soft. ABSENT: distended, guarding, mass, organolmegaly, rebound, tenderness Rectal exam: PRESENT: deferred Extremities exam: PRESENT: full ROM. ABSENT: calf tenderness, clubbing, pedal edema Neurological exam: PRESENT: alert, awake, oriented to person, oriented to place, oriented to time, oriented to situation, CN II-XII grossly intact. ABSENT: motor sensory deficit Psychiatric exam: PRESENT: appropriate affect, normal mood. ABSENT: homicidal ideation, suicidal ideation Results Laboratory Results: 05/11/19 06:18 05/11/19 06:18 05/11/19 05/11/19 06:18 06:18 WBC 7.4 RBC 4.49 Hgb 13.6 Hct 38.8 MCV 87 MCH 30.4 MCHC 35.1 RDW 12.0 Plt Count 163 Seg Neutrophils % 59.9 Sodium 134.2 L Potassium 3.7 Chloride 98 Carbon Dioxide 25 Anion Gap 11 BUN 14 Creatinine 0.72 Est GFR ( Amer) > 60 Glucose 203 H Calcium 9.1 Magnesium 2.2 Total Bilirubin 0.5 AST 15 L Alkaline Phosphatase 72 Total Protein 6.0 L Albumin 3.8 05/09/19 05/09/19 05/09/19 10:10 10:10 18:58 Creatine Kinase 109 106 CK-MB (CK-2) 0.38 Troponin I < 0.012 05/09/19 05/10/19 05/10/19 18:58 00:58 00:58 Creatine Kinase 81 CK-MB (CK-2) 0.25 < 0.22 Troponin I 0.012 0.015 Impressions: Chest X-Ray 05/09/19 12:30 IMPRESSION: STABLE APPEARANCE OF THE CHEST. SUPPORT DEVICES UNCHANGED. Abdomen Ultrasound 05/10/19 00:00 IMPRESSION: NORMAL RIGHT UPPER QUADRANT ULTRASOUND. Assessment and Plan - Diagnosis (1) Hyperglycemia Is this a current diagnosis for this admission?: Yes Plan: 05/09/2019-patient came in with high blood sugars associated with nausea and vomitings urinalysis shows ketones of 80 blood sugar of 349 and serum sodium of 129. And creatinine also 1.24. Patient is going to be admitted to [facility] [place] started on normal saline at 125 cc/h, started on diabetic diet, Lantus 15 units twice a day, insulin sliding scale. GI prophylaxis DVT prophylaxis initiated blood cultures urine cultures are requested started on IV Rocephin. Dietary consult was requested. 05/10/2019-patient came in with high blood sugars presently on Lantus 15 units twice a day and insulin sliding scale and IV fluids normal saline at 125 cc/h, hemoglobin A1c came back 10.2 latest blood sugar is 138 again diet compliance of medication was advised plan is to continue the present management at this point. 05/[id number]-lezc-old male with history of type 2 diabetes mellitus on insulin at home came to the emergency room with high blood sugars associated with nausea and vomitings is noncompliant with medications no complications during the hospital stay. He is going home on Lantus 15 units twice a day and also advised him to continue his metformin and we are going to give them instructions for insulin sliding scale at the time of discharge. (2) Acute kidney injury Is this a current diagnosis for this admission?: Yes Plan: 05/09/2019-patient came in with acute kidney injury creatinine of 1.24 plan to give him IV fluids normal saline at 125 cc/h. 05/10/2019-patient came in with creatinine 1.24 latest creatinine is 0.08. ANABELA most likely secondary to prerenal causes resolved. 05/11/2019-patient came in with serum creatinine of 1.24 improved to 0.76 today ANABELA most likely secondary to prerenal causes resolved. (3) Nausea and vomiting Qualifiers: Vomiting type: unspecified Vomiting Intractability: non-intractable Qualified Code(s): R11.2 - Nausea with vomiting, unspecified Is this a current diagnosis for this admission?: Yes Plan: 05/09/2019-patient came in with complaints of nausea and vomitings's to start the patient on Phenergan 25 mg IV every 6 as needed. Nausea and vomiting's most likely secondary to uncontrolled diabetes mellitus leading to gastroparesis. 05/10/2019-still complaining of nausea vomiting as per his girlfriend he threw up a loose green bile this morning. Plan is to do the ultrasound the gallbladder. \ 05/11/2019-nausea and vomiting is resolved gallbladder ultrasound is negative for acute pathology. (4) Hyponatremia Is this a current diagnosis for this admission?: Yes Plan: 05/09/2019-serum sodium is 129, blood sugar is around 400 corrected serum sodium is around 134. Started on normal saline at 125 cc/h. 05/10/2019-patient came in with serum sodium of 129 corrected serum sodium is around 134 today serum sodium is 134.7 hyponatremia due to dehydration and nausea vomiting resolved. 05/11/2019-patient came in with serum sodium of 12/02/2028 today's serum sodium is 134.2 with blood sugar of 194 corrected sodium is around 136. Hyponatremia is resolved. (5) Depression Is this a current diagnosis for this admission?: No Plan: 05/09/2019-patient has history of depression taking Effexor at home plan is to resume Effexor during the hospital stay. 05/11/2019-patient has history of depression we continued his Effexor during the hospital stay no acute events in the hospital stay. - Time Time Spent with patient: 15-24 minutes Medications reviewed and adjusted accordingly: Yes Anticipated discharge: Home
[2019-05-11] MEDS: CEFTRIAXONE 2 GM/D5W RTU 2 GM/50 ML RTUPB IV SCH (12:11)
--- NOTE | 2019-05-11 18:54 | EKG REPORT ---
SEVERITY:- BORDERLINE ECG - SINUS TACHYCARDIA BORDERLINE PROLONGED QT INTERVAL : Confirmed by: Efren Tello 11-May-2019 18:54:27
--- NOTE | 2019-05-11 18:54 | EKG REPORT ---
SEVERITY:- BORDERLINE ECG - SINUS TACHYCARDIA BORDERLINE PROLONGED QT INTERVAL : Confirmed by: Efren Tello 11-May-2019 18:54:31
--- NOTE | 2019-05-16 14:31 | PDOC DISCHARGE SUMMARY ---
General - Admit/Disc Date/PCP Admission Date/Primary Care Provider: 05/09/19 12:41 MAR WANGP- Discharge Date: 04/11/19 - Discharge Diagnosis (1) Hyperglycemia Is this a current diagnosis for this admission?: Yes Summary: 05/09/2019-patient came in with high blood sugars associated with nausea and vomitings urinalysis shows ketones of 80 blood sugar of 349 and serum sodium of 129. And creatinine also 1.24. Patient is going to be admitted to IMCU started on normal saline at 125 cc/h, started on diabetic diet, Lantus 15 units twice a day, insulin sliding scale. GI prophylaxis DVT prophylaxis initiated blood cultures urine cultures are requested started on IV Rocephin. Dietary consult was requested. 05/10/2019-patient came in with high blood sugars presently on Lantus 15 units twice a day and insulin sliding scale and IV fluids normal saline at 125 cc/h, hemoglobin A1c came back 10.2 latest blood sugar is 138 again diet compliance of medication was advised plan is to continue the present management at this point. 05/11/[id number]-iayl-old male with history of type 2 diabetes mellitus on insulin at home came to the emergency room with high blood sugars associated with nausea and vomitings is noncompliant with medications no complications during the hospital stay. He is going home on Lantus 15 units twice a day and also advised him to continue his metformin and we are going to give them instructions for insulin sliding scale at the time of discharge. (2) Acute kidney injury Is this a current diagnosis for this admission?: Yes Summary: 05/09/2019-patient came in with acute kidney injury creatinine of 1.24 plan to give him IV fluids normal saline at 125 cc/h. 05/10/2019-patient came in with creatinine 1.24 latest creatinine is 0.08. ANABELA most likely secondary to prerenal causes resolved. 05/11/2019-patient came in with serum creatinine of 1.24 improved to 0.76 today ANABELA most likely secondary to prerenal causes resolved. (3) Nausea and vomiting Is this a current diagnosis for this admission?: Yes Summary: 05/09/2019-patient came in with complaints of nausea and vomitings's to start the patient on Phenergan 25 mg IV every 6 as needed. Nausea and vomiting's most likely secondary to uncontrolled diabetes mellitus leading to gastroparesis. 05/10/2019-still complaining of nausea vomiting as per his girlfriend he threw up a loose green bile this morning. Plan is to do the ultrasound the gallbladder. \ 05/11/2019-nausea and vomiting is resolved gallbladder ultrasound is negative for acute pathology. (4) Hyponatremia Is this a current diagnosis for this admission?: Yes Summary: 05/09/2019-serum sodium is 129, blood sugar is around 400 corrected serum sodium is around 134. Started on normal saline at 125 cc/h. 05/10/2019-patient came in with serum sodium of 129 corrected serum sodium is around 134 today serum sodium is 134.7 hyponatremia due to dehydration and nausea vomiting resolved. 05/11/2019-patient came in with serum sodium of 12/02/2028 today's serum sodium is 134.2 with blood sugar of 194 corrected sodium is around 136. Hyponatremia is resolved. (5) Depression Is this a current diagnosis for this admission?: No Summary: 05/09/2019-patient has history of depression taking Effexor at home plan is to resume Effexor during the hospital stay. 05/11/2019-patient has history of depression we continued his Effexor during the hospital stay no acute events in the hospital stay. - Additional Information Resuscitation Status: Full Code Discharge Diet: Diabetic Discharge Activity: Activity As Tolerated Prescriptions: Insulin Glargine,Hum.rec.anlog [Lantus Insulin 100 Unit/1 ml 10 ml] 15 unit SUBCUT Q12 #3 vial Promethazine HCl [Phenergan 25 mg Tablet] 25 mg PO Q4HP PRN #20 tablet PRN Reason: Pantoprazole Sodium [Protonix [address] Tablet] 40 mg PO BID@0600,1700 #60 tablet.dr Home Medications: Hydroxyzine HCl [Atarax 25 mg Tablet] 25 mg PO Q8HP PRN 05/10/19 Metformin HCl [Glucophage 500 mg Tablet] 500 mg PO BID 05/10/19 Venlafaxine HCl ER [Effexor Xr 37.5 mg Cap.sr] 37.5 mg PO DAILY 05/10/19 Insulin Glargine,Hum.rec.anlog [Lantus Insulin 100 Unit/1 ml 10 ml] 15 unit SUBCUT Q12 #3 vial 05/11/19 Pantoprazole Sodium [Protonix [address] Tablet] 40 mg PO BID@0600,1700 #60 tablet.dr 05/11/19 Promethazine HCl [Phenergan 25 mg Tablet] 25 mg PO Q4HP PRN #20 tablet 05/11/19 Venlafaxine HCl ER [Effexor Xr 37.5 mg Cap.sr] 37.5 mg PO DAILY cap.sr.24h 05/11/19 History of Present Illness History of Present Illness: OLIVIA DRISCOLL is a 29 year old male history of type 2 diabetes mellitus, depression came to the emergency room with complaints of nausea vomiting associated with abdominal pain normal bowel movement for last 6 days. Patient barely able to drink water and throwing up everything else. Denies any fever but complaining of dry cough associated with chills and sweats. Denies any rashes. Denies any problems with urination. He said he is compliant with his medications and it and took his insulin this morning. Work-up in the emergency room indicates blood sugar of 394 and serum sodium of 129 and creatinine of 1.24 with urine ketones more than 80. Medical consult was called for admission. Hospital Course Hospital Course: 29 year old male history of type 2 diabetes mellitus, depression came to the emergency room with complaints of nausea vomiting associated with abdominal pain normal bowel movement for last 6 days. Patient barely able to drink water and throwing up everything else. Denies any fever but complaining of dry cough associated with chills and sweats. Denies any rashes. Denies any problems with urination. He said he is compliant with his medications and it and took his ins ulin this morning. Work-up in the emergency room indicates blood sugar of 394 and serum sodium of 129 and creatinine of 1.24 with urine ketones more than 80. Medical consult was called for admission. 05/10/2019-no acute events in the last 24 hours. Patient is afebrile. Blood sugars are much better. Hemoglobin A1c came back 10.2. Latest blood sugar is 134. Plan is to continue the present management. 05/11/[id number]-gtrm-old male with history of type 2 diabetes mellitus admitted with uncontrolled blood sugars due to noncompliance. He also came in with complaints of nausea vomitings those things are resolved. Blood sugars are much improved. Hemoglobin A1c came back 10.2 discussed compliance with medication and diet with the patient and is going home today.. Physical Exam Vital Signs: Temp Pulse Resp BP Pulse Ox 98.9 F 110 H 18 129/87 H 100 05/11/19 12:32 05/11/19 12:32 05/11/19 12:32 05/11/19 07:48 05/11/19 12:32 General appearance: PRESENT: no acute distress Head exam: PRESENT: atraumatic Eye exam: PRESENT: PERRLA Mouth exam: PRESENT: moist, neck supple, tongue midline Teeth exam: PRESENT: poor dentation Neck exam: ABSENT: carotid bruit, JVD, lymphadenopathy, thyromegaly Respiratory exam: PRESENT: clear to auscultation cal. ABSENT: rales, rhonchi, wheezes Cardiovascular exam: PRESENT: RRR. ABSENT: diastolic murmur, rubs, systolic murmur GI/Abdominal exam: PRESENT: normal bowel sounds, soft. ABSENT: distended, guarding, mass, organolmegaly, rebound, tenderness Rectal exam: PRESENT: deferred Extremities exam: PRESENT: full ROM. ABSENT: calf tenderness, clubbing, pedal edema Neurological exam: PRESENT: alert, awake, oriented to person, oriented to place, oriented to time, oriented to situation, CN II-XII grossly intact. ABSENT: motor sensory deficit Psychiatric exam: PRESENT: appropriate affect, normal mood. ABSENT: homicidal ideation, suicidal ideation Results Laboratory Results: 05/11/19 06:18 05/11/19 06:18 05/09/19 05/09/19 05/09/19 10:10 10:10 18:58 Creatine Kinase 109 106 CK-MB (CK-2) 0.38 Troponin I < 0.012 05/09/19 05/10/19 05/10/19 18:58 00:58 00:58 Creatine Kinase 81 CK-MB (CK-2) 0.25 < 0.22 Troponin I 0.012 0.015 Impressions: Chest X-Ray 05/09/19 12:30 IMPRESSION: STABLE APPEARANCE OF THE CHEST. SUPPORT DEVICES UNCHANGED. Abdomen Ultrasound 05/10/19 00:00 IMPRESSION: NORMAL RIGHT UPPER QUADRANT ULTRASOUND. Qualifiers - * PATIENT BEING DISCHARGED WITH ANY OF THE FOLLOWING DIAGNOSIS: No VTE patient discharged on overlapping Therapy?: No Acute Heart Failure - Is this a Heart Failure Patient?: No Plan Time Spent: Greater than 30 Minutes
== END 2019-05-11 14:00 | disposition home or self-care (01) | DRG 638 ==
LOC: ER 10:06 → EH 12:41 → 3S 14:23
PROVIDERS: ADMIT Internal Medicine; ATTEND Internal Medicine
DX: E11.65 Type 2 diabetes mellitus with hyperglycemia (principal); N17.9 Acute kidney failure, unspecified; E87.1 Hypo-osmolality and hyponatremia; E86.0 Dehydration; F31.9 Bipolar disorder, unspecified; F17.200 Nicotine dependence, unspecified, uncomplicated; E11.43 Type 2 diabetes mellitus with diabetic autonomic (poly)neuropathy; K31.84 Gastroparesis; Z79.899 Other long term (current) drug therapy; Z79.4 Long term (current) use of insulin; Z91.14 Patient's other noncompliance with medication regimen; Z87.74 Personal history of (corrected) congenital malformations of heart and circulatory system
CPT/HCPCS: 36415; 36600; 71045; 76705; 80053; 80061; 80307; 81001; 82010; 82550; 82553; 82803; 82962; 83036; 83735; 84443; 84484; 85025; 85610; 87040; 87086; 93005; 93010; 96361; 96374; 99291; J0696; J1815; J2060; J2405; J2550; J3490; J7030; J7120

== ENCOUNTER 2019-06-26 21:49 | Emergency (ER) | payer MEDICAID ==
[2019-06-26] MEDS ORDERED: ASPIRIN 81 MG TABLET, CHEWABLE PO ONE (22:52)
--- NOTE | 2019-06-26 22:52 | ER Document Report ---
ED Medical Screen (RME) - General Chief Complaint: Chest Pain Stated Complaint: CHEST PAIN/SUGAR ISSUE Time Seen by Provider: 06/26/19 22:48 Primary Care Provider: YOHANA SEBASTIAN FNP-BC [Primary Care Provider] - Follow up as needed Mode of Arrival: Ambulatory Information source: Patient Notes: 29-year-old male presented to ED for complaint of chest pain, epigastric pain, and nausea for days. He states his sugar was 301 this morning and 212 this afternoon about 4:00. He states he is having chest pain in the center of his chest and is also having epigastric pain he states he is having nausea not vomiting. Diabetic type II he does take insulin. Patient is alert oriented respirations regular and unlabored speaking in full sentences. I have greeted and performed a rapid initial assessment of this patient. A comprehensive ED assessment and evaluation of the patient, analysis of test results and completion of medical decision making process will be conducted by an additional ED providers. TRAVEL OUTSIDE OF THE [place] 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
--- NOTE | 2019-06-26 23:37 | RADIOLOGY REPORT (SQ) ---
EXAM DESCRIPTION: XR CHEST 2 VIEWS COMPLETED DATE/TME: 06/26/2019 22:53 CLINICAL HISTORY: 29 years Male, chest pain COMPARISON: 05/09/19 NUMBER OF VIEWS/TECHNIQUE: 2, Frontal, Lateral FINDINGS: Increased lung volume, clear parenchyma, normal cardiac silhouette, and intact bony thorax.Cardiac/mediastinal clips. IMPRESSION: No acute cardiopulmonary findings.
[2019-06-27 00:48] LABS: ABSOLUTE EOSINOPHILS # (AUTO) 0.1 10^3/uL (0.0-0.6); ABSOLUTE LYMPHOCYTES (AUTO) 2.8 10^3/uL (0.5-4.7); ABSOLUTE MONOCYTES (AUTO) 0.6 10^3/uL (0.1-1.4); BASOPHILS % (AUTO) 0.4 % (0-2); EOSINOPHILS % (AUTO) 0.9 % (0-6); HEMATOCRIT 43.6 % (37.9-51.0); LYMPHOCYTES % (AUTO) 33.1 % (13-45); MEAN CORPUSCULAR HEMOGLOBIN 30.5 pg (27.0-33.4); MEAN CORPUSCULAR HGB CONC 34.5 g/dL (32.0-36.0); MEAN CORPUSCULAR VOLUME 88 fl (80-97); MONOCYTES % (AUTO) 7.3 % (3-13); PLATELET COUNT 242 10^3/uL (150-450); RED BLOOD COUNT 4.94 10^6/uL (4.35-5.55); RED CELL DISTRIBUTION WIDTH 12.3 % (11.5-14.0); SEGMENTED NEUTROPHILS % (AUTO) 58.3 % (42-78); TOTAL CELLS COUNTED % (AUTO) 100 %; VENOUS BLOOD BASE EXCESS 3.3 mmol/L; VENOUS BLOOD HCO3 26.5 mmol/L (20-32); VENOUS BLOOD PCO2 35.8 mmHg (35-63); VENOUS BLOOD PH 7.49 (7.30-7.42); WHITE BLOOD COUNT 8.6 10^3/uL (4.0-10.5)
[2019-06-27 00:54] LABS: INTERNATIONAL RATION (INR) 1.02; PROTHROMBIN TIME 13.4 SEC (11.4-15.4)
[2019-06-27 01:03] LABS: ALBUMIN 4.5 g/dL (3.5-5.0); ALKALINE PHOSPHATASE 67 U/L (38-126); ANION GAP 10 (5-19); ASPARTATE AMINO TRANSFERASE 16 U/L (17-59); BILIRUBIN,TOTAL 0.7 mg/dL (0.2-1.3); BLOOD UREA NITROGEN 10 mg/dL (7-20); CALCIUM 10.1 mg/dL (8.4-10.2); CARBON DIOXIDE 28 mmol/L (22-30); CHLORIDE 103 mmol/L (98-107); CREATINE KINASE 81 U/L (55-170); GLUCOSE 128 mg/dL (75-110); POTASSIUM 3.8 mmol/L (3.6-5.0); TOTAL PROTEIN 7.4 g/dL (6.3-8.2)
[2019-06-27 01:16] LABS: CREATINE KINASE MB 0.74 ng/mL (<4.55); NT PRO BNP 47 pg/mL (<125)
[2019-06-27 01:19] LABS: TROPONIN I < 0.012 ng/mL
[2019-06-27] MEDS ORDERED: ASPIRIN 81 MG TABLET, CHEWABLE ONE (01:43)
[2019-06-27] MEDS ORDERED: PROMETHAZINE HCL 25 MG TABLET PO ONE (03:36)
[2019-06-27] MEDS ORDERED: FAMOTIDINE 20 MG TABLET PO ONE (03:36)
[2019-06-27] MEDS ORDERED: SUCRALFATE 1 GM TABLET PO ONE (03:36)
--- NOTE | 2019-06-27 03:44 | ER Document Report ---
ED General - General Chief Complaint: Chest Pain Stated Complaint: CHEST PAIN/SUGAR ISSUE Time Seen by Provider: 06/26/19 22:48 Primary Care Provider: YOHANA SEBASTIAN FNP-BC [Primary Care Provider] - Follow up as needed Mode of Arrival: Ambulatory Notes: Patient is a 29-year-old male that comes to the emergency department for chief complaint of upper abdominal pain (he points to the epigastric area), radiating up into his chest along with nausea. He states he has had problems with chance ritis ever since he was treated for H. pylori a couple of years ago. He states that sometimes gets so bad that he cannot stop vomiting, he states he was admitted to the hospital earlier this year for this, he states he does not wanted to get that bad again. He also states that he is running low on his medications including Lantus and metformin. He denies vomiting, fever, difficulty breathing, or any other complaints at this time. He denies smoking, alcohol, recreational drugs. He does vape. TRAVEL OUTSIDE OF THE [place] IN LAST 30 DAYS: No - Related Data Allergies/Adverse Reactions: No Known Allergies Allergy (Verified 03/09/19 10:57) Home Medications: 15 units Lantus Past Medical History - General Information source: Patient - Social History Smoking Status: Current Every Day Smoker Chew tobacco use (# tins/day): No Frequency of alcohol use: None Drug Abuse: None Lives with: Family Family History: None Patient has suicidal ideation: No Patient has homicidal ideation: No Endocrine Medical History: Reports: Hx Diabetes Mellitus Type 1, Hx Diabetes Mellitus Type 2 Renal/ Medical History: Denies: Hx Peritoneal Dialysis Psychiatric Medical History: Reports: Hx Depression Past Surgical History: Reports: Other - 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 with a - Immunizations Immunizations up to date: Yes Hx Diphtheria, Pertussis, Tetanus Vaccination: Yes Review of Systems - Review of Systems Constitutional: No symptoms reported EENT: No symptoms reported Cardiovascular: No symptoms reported Respiratory: No symptoms reported Gastrointestinal: See HPI Genitourinary: No symptoms reported Male Genitourinary: No symptoms reported Musculoskeletal: No symptoms reported Skin: No symptoms reported Hematologic/Lymphatic: No symptoms reported Neurological/Psychological: No symptoms reported Physical Exam - Vital signs Vitals: Temp Pulse Resp BP Pulse Ox 98.6 F 96 18 127/76 H 99 06/26/19 22:13 06/26/19 22:13 06/26/19 22:13 06/26/19 22:13 06/26/19 22:13 - Notes Notes: GENERAL: Sleeping but easily aroused, no signs of distress. HEAD: Normocephalic, atraumatic. EYES: Pupils equal, round, and reactive to light. Extraocular movements intact. ENT: Oral mucosa moist, tongue midline. Oropharynx unremarkable. Airway patent. NECK: Full range of motion. Supple. Trachea midline. LUNGS: Clear to auscultation bilaterally, no wheezes, rales, or rhonchi. No respiratory distress. HEART: Regular rate and rhythm. No murmur ABDOMEN: Soft, non-tender. Non-distended. Bowel sounds present in all 4 quadrants. GENITOURINARY: Deferred EXTREMITIES: Moves all 4 extremities spontaneously. No edema, normal radial and dorsalis pedis pulses bilaterally. No cyanosis. BACK: no cervical, thoracic, lumbar midline tenderness. No saddle anesthesia, normal distal neurovascular exam. NEUROLOGICAL: Alert and oriented x3. Normal speech. Cranial nerves II through XII grossly intact. PSYCH: Normal affect, normal mood. SKIN: Warm, dry, normal turgor. No rashes or lesions noted. Course - Re-evaluation Re-evalutation: I awoke patient from sleeping, he already was asking to leave immediately. He has no current complaints. His abdomen is soft and benign, he denies current nausea. He is able to tolerate p.o. without any difficulty. He declines IV fluids but he does agree to p.o. medications for upper GI inflammation based on his reported history and symptoms. He does request refills of his medications. He does report he has primary care follow-up. He states he will return if he worsens in any way. Venous blood gas slightly basic and nonspecific. Chemistry unremarkable without significant hypoglycemia, no acidosis noted. CBC unremarkable, urinalysis unremarkable, lipase unremarkable. Vital signs unremarkable. Patient prescribed requested medications, stable at time of discharge. - Vital Signs Vital signs: Temp Pulse Resp BP Pulse Ox 98.3 F 89 14 119/61 98 06/27/19 03:49 06/27/19 03:49 06/27/19 03:49 06/27/19 03:49 06/27/19 03:49 - Laboratory Result Diagrams: 06/27/19 00:24 06/27/19 00:24 Laboratory results interpreted by me: 06/27/19 06/27/19 00:24 00:24 VBG pH 7.49 H Glucose 128 H AST 16 L Lipase 20.1 L Discharge - Discharge Clinical Impression: Epigastric pain, Nausea, Has run out of medications Condition: Stable Disposition: HOME, SELF-CARE Additional Instructions: Your work-up is reassuring at this time, your evaluation is most suggestive of gastritis as the cause of your symptoms. Take medications as prescribed, refill and take your regular prescribed medications, follow-up with primary care. Come back if you are worse including vomiting, vomiting blood, black stools, severe abdominal pain, or any other concerning or worsening symptoms. Prescriptions: Sucralfate [Carafate 1 gm Tablet] 1 gm PO QID #20 tablet Metformin HCl [Glucophage 500 mg Tablet] 500 mg PO BID #60 tablet Insulin Glargine,Hum.rec.anlog [Lantus Insulin 100 Unit/1 ml 10 ml] 15 unit SUBCUT BID #10 ml Famotidine [Pepcid 20 mg Tablet] 20 mg PO BID #20 tablet Promethazine HCl [Phenergan 25 mg Tablet] 25 mg PO Q6H PRN #20 tablet PRN Reason: Forms: Return to Work Referrals: YOHANA SEBASTIAN, [facility] [Primary Care Provider] - Follow up as needed
[2019-06-27 03:50] VITALS: BP 119/61
--- NOTE | 2019-06-27 19:12 | EKG REPORT ---
SEVERITY:- OTHERWISE NORMAL ECG - SINUS TACHYCARDIA : Confirmed by: Sylvie Jean-Baptiste MD 27-Jun-2019 19:11:47
== END 2019-06-27 03:50 | disposition home or self-care (01) ==
LOC: ER 21:49
DX: R10.10 Upper abdominal pain, unspecified (principal); R11.0 Nausea; R07.9 Chest pain, unspecified; F17.200 Nicotine dependence, unspecified, uncomplicated
CPT/HCPCS: 93005; 99285; 36415; 82553; 82550; 83690; 83735; 84443; 85025; 85610; 85730; 80053; 84484; 82803; 83880; 71046; 93010; J3490 ×3

== ENCOUNTER 2019-08-11 08:37 | Emergency (ER) | payer MEDICAID ==
[2019-08-11] MEDS ORDERED: NORMAL SALINE 1000 ML 1,000 ML IV ONE ×2 (09:20→12:36)
[2019-08-11] MEDS ORDERED: ONDANSETRON HCL INJ/PF 4 MG/2 ML SDV IV ONE (09:20)
--- NOTE | 2019-08-11 09:21 | ER Document Report ---
ED Medical Screen (RME) - General Chief Complaint: Vomiting Stated Complaint: ABDOMINAL PAIN,VOMITING,CONGESTION Time Seen by Provider: 08/11/19 09:16 Primary Care Provider: YOHANA SEBASTIAN FNP-BC [Primary Care Provider] - Follow up as needed Information source: Patient Notes: Patient presents complaining of abdominal pain with nausea and vomiting for the past 3 days. Patient complains of pain to the epigastric area. Patient reports blood sugars been over 250 at home. Patient also complains of fast heart rate. I have greeted and performed a rapid initial assessment of this patient. A comprehensive ED assessment and evaluation of the patient, analysis of test results and completion of the medical decision making process will be conducted by additional ED providers. TRAVEL OUTSIDE OF THE [place] 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 with a - Immunizations Immunizations up to date: Yes Hx Diphtheria, Pertussis, Tetanus Vaccination: Yes Physical Exam - Vital signs Vitals: Temp Pulse Resp BP Pulse Ox 98.2 F 113 H 18 120/80 98 08/11/19 08:50 08/11/19 08:50 08/11/19 08:50 08/11/19 08:50 08/11/19 08:50 - Cardiovascular Rhythm: Tachycardia Heart sounds: S1 appreciated, S2 appreciated - Abdominal Tenderness: Tender - Epigastric Course - Vital Signs Vital signs: Temp Pulse Resp BP Pulse Ox 98.2 F 113 H 18 120/80 98 08/11/19 08:59 08/11/19 08:59 08/11/19 08:59 08/11/19 08:59 08/11/19 08:59 Doctor's Discharge - Discharge Referrals: YOHANA SEBASTIAN FNP-BC [Primary Care Provider] - Follow up as needed
[2019-08-11 09:56] LABS: ABSOLUTE EOSINOPHILS # (AUTO) 0.1 10^3/uL (0.0-0.6); ABSOLUTE LYMPHOCYTES (AUTO) 2.7 10^3/uL (0.5-4.7); ABSOLUTE MONOCYTES (AUTO) 0.6 10^3/uL (0.1-1.4); ABSOLUTE NEUT (AUTO) 5.9 10^3/uL (1.7-8.2); BASOPHILS % (AUTO) 0.4 % (0-2); HEMATOCRIT 47.9 % (37.9-51.0); HEMOGLOBIN 16.7 g/dL (13.5-17.0); LYMPHOCYTES % (AUTO) 28.3 % (13-45); MEAN CORPUSCULAR HEMOGLOBIN 30.8 pg (27.0-33.4); MEAN CORPUSCULAR HGB CONC 34.9 g/dL (32.0-36.0); MEAN CORPUSCULAR VOLUME 88 fl (80-97); MONOCYTES % (AUTO) 6.9 % (3-13); PLATELET COUNT 274 10^3/uL (150-450); RED BLOOD COUNT 5.43 10^6/uL (4.35-5.55); RED CELL DISTRIBUTION WIDTH 11.9 % (11.5-14.0); SEGMENTED NEUTROPHILS % (AUTO) 63.4 % (42-78); TOTAL CELLS COUNTED % (AUTO) 100 %; WHITE BLOOD COUNT 9.4 10^3/uL (4.0-10.5)
[2019-08-11 10:01] LABS: VENOUS BLOOD BASE EXCESS 0.2 mmol/L; VENOUS BLOOD HCO3 22.4 mmol/L (20-32); VENOUS BLOOD PCO2 30.8 mmHg (35-63); VENOUS BLOOD PH 7.48 (7.30-7.42)
[2019-08-11 10:19] LABS: ALBUMIN 5.1 g/dL (3.5-5.0); ALKALINE PHOSPHATASE 90 U/L (38-126); ANION GAP 19 (5-19); ASPARTATE AMINO TRANSFERASE 15 U/L (17-59); BILIRUBIN,DIRECT 0.1 mg/dL (0.0-0.4); BILIRUBIN,TOTAL 1.1 mg/dL (0.2-1.3); BLOOD UREA NITROGEN 11 mg/dL (7-20); CALCIUM 10.7 mg/dL (8.4-10.2); CARBON DIOXIDE 22 mmol/L (22-30); CHLORIDE 98 mmol/L (98-107); GLUCOSE 314 mg/dL (75-110); TOTAL PROTEIN 8.1 g/dL (6.3-8.2)
[2019-08-11 10:23] LABS: APPEARANCE,URINE CLEAR; BILIRUBIN,URINE NEGATIVE (NEGATIVE); COLOR,URINE YELLOW; GLUCOSE, URINE >=500 mg/dL (NEGATIVE); KETONES,URINE 80 mg/dL (NEGATIVE); LEUKOCYTE ESTERASE,URINE NEGATIVE (NEGATIVE); NITRITE,URINE NEGATIVE (NEGATIVE); PROTEIN,URINE NEGATIVE (NEGATIVE); URINE SPECIFIC GRAVITY 1.036; UROBILINOGEN,URINE NEGATIVE mg/dL (<2.0)
--- NOTE | 2019-08-11 12:39 | ER Document Report ---
ED General - General Chief Complaint: Vomiting Stated Complaint: ABDOMINAL PAIN,VOMITING,CONGESTION Time Seen by Provider: 08/11/19 09:16 Primary Care Provider: YOHANA SEBASTIAN FNP-BC [Primary Care Provider] - Follow up as needed Mode of Arrival: Ambulatory Information source: Patient Notes: 29-year-old male with type I diabetic presenting to the emergency department chief complaint of nausea, vomiting over the last 3 days. Patient reports he ran out of his Lantus a few weeks ago but has still been taking his Victoza. Patient reports blood sugars have been elevated at home over 250. He also complains of tachycardia. Denies chest pain, shortness of breath. Denies any vomiting or abdominal pain. TRAVEL OUTSIDE OF THE [place] IN LAST 30 DAYS: No - Related Data Allergies/Adverse Reactions: No Known Allergies Allergy (Verified 03/09/19 10:57) Home Medications: insulin Past Medical History - General Information source: Patient - Social History Smoking Status: Never Smoker Chew tobacco use (# tins/day): No Frequency of alcohol use: None Drug Abuse: None Family History: None Patient has suicidal ideation: No Patient has homicidal ideation: No Endocrine Medical History: Reports: Hx Diabetes Mellitus Type 1 Renal/ Medical History: Denies: Hx Peritoneal Dialysis Psychiatric Medical History: Reports: Hx Depression Past Surgical History: Reports: Other - 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 with a - Immunizations Immunizations up to date: Yes Hx Diphtheria, Pertussis, Tetanus Vaccination: Yes Review of Systems - Review of Systems Constitutional: No symptoms reported EENT: No symptoms reported Cardiovascular: No symptoms reported Respiratory: No symptoms reported Gastrointestinal: Nausea, Vomiting Genitourinary: No symptoms reported Male Genitourinary: No symptoms reported Musculoskeletal: No symptoms reported Skin: No symptoms reported Hematologic/Lymphatic: No symptoms reported Neurological/Psychological: No symptoms reported Physical Exam - Vital signs Vitals: Temp Pulse Resp BP Pulse Ox 98.2 F 113 H 18 120/80 98 08/11/19 08:50 08/11/19 08:50 08/11/19 08:50 08/11/19 08:50 08/11/19 08:50 - Notes Notes: PHYSICAL EXAMINATION: GENERAL: Well-appearing, well-nourished and in no acute distress. HEAD: Atraumatic, normocephalic. EYES: Pupils equal round and reactive to light, extraocular movements intact, sclera anicteric, conjunctiva are normal. ENT: Nares patent, oropharynx clear without exudates. Moist mucous membranes. NECK: Normal range of motion, supple without lymphadenopathy LUNGS: Breath sounds clear to auscultation bilaterally and equal. No wheezes rales or rhonchi. HEART: Regular rate and rhythm without murmurs ABDOMEN: Soft, nontender, nondistended abdomen. No guarding, no rebound. No masses appreciated. Musculoskeletal: Normal range of motion, no pitting or edema. No cyanosis. NEUROLOGICAL: Cranial nerves grossly intact. Normal speech, normal gait. Normal sensory, motor exams PSYCH: Normal mood, normal affect. SKIN: Warm, Dry, normal turgor, no rashes or lesions noted. Course - Re-evaluation Re-evalutation: Laboratory 08/11/19 08/11/19 08/11/19 09:20 09:36 09:36 WBC 9.4 RBC 5.43 Hgb 16.7 Hct 47.9 MCV 88 MCH 30.8 MCHC 34.9 RDW 11.9 Plt Count 274 Lymph % (Auto) 28.3 [facility] % (Auto) 6.9 Eos % (Auto) 1.0 Baso % (Auto) 0.4 Absolute Neuts (auto) 5.9 Absolute Lymphs (auto) 2.7 Absolute Monos (auto) 0.6 Absolute Eos (auto) 0.1 Absolute Basos (auto) 0.0 Seg Neutrophils % 63.4 VBG pH VBG pCO2 VBG HCO3 VBG Base Excess Sodium 138.8 Potassium 4.0 Chloride 98 Carbon Dioxide 22 Anion Gap 19 BUN 11 Creatinine 0.68 Est GFR ( Amer) > 60 Est GFR (MDRD) Non-Af > 60 Glucose 314 H POC Glucose 297 H Calcium 10.7 H Total Bilirubin 1.1 Direct Bilirubin 0.1 Neonat Total Bilirubin Not Reportable Neonat Direct Bilirubin Not Reportable Neonat Indirect Bili Not Reportable AST 15 L ALT 12 Alkaline Phosphatase 90 Total Protein 8.1 Albumin 5.1 H Lipase 23.2 Urine Color Urine Appearance Urine pH Ur Specific Delta Urine Protein Urine Glucose (UA) Urine Ketones Urine Blood Urine Nitrite Urine Bilirubin Urine Urobilinogen Ur Leukocyte Esterase Urine WBC (Auto) Urine RBC (Auto) Urine Mucus (Auto) Urine Ascorbic Acid 08/11/19 08/11/19 08/11/19 09:36 09:58 10:19 WBC RBC Hgb Hct MCV MCH MCHC RDW Plt Count Lymph % (Auto) [facility] % (Auto) Eos % (Auto) Baso % (Auto) Absolute Neuts (auto) Absolute Lymphs (auto) Absolute Monos (auto) Absolute Eos (auto) Absolute Basos (auto) Seg Neutrophils % VBG pH 7.48 H VBG pCO2 30.8 L VBG HCO3 22.4 VBG Base Excess 0.2 Sodium Potassium Chloride Carbon Dioxide Anion Gap BUN Creatinine Est GFR ( Amer) Est GFR (MDRD) Non-Af Glucose POC Glucose 272 H Calcium Total Bilirubin Direct Bilirubin Neonat Total Bilirubin Neonat Direct Bilirubin Neonat Indirect Bili AST ALT Alkaline Phosphatase Total Protein Albumin Lipase Urine Color YELLOW Urine Appearance CLEAR Urine pH 6.0 Ur Specific Delta 1.036 Urine Protein NEGATIVE Urine Glucose (UA) >=500 H Urine Ketones 80 H Urine Blood MODERATE H Urine Nitrite NEGATIVE Urine Bilirubin NEGATIVE Urine Urobilinogen NEGATIVE Ur Leukocyte Esterase NEGATIVE Urine WBC (Auto) 2 Urine RBC (Auto) 44 Urine Mucus (Auto) RARE Urine Ascorbic Acid NEGATIVE Patient appears well, nontoxic. Labs as recorded above. No evidence of DKA at this time. Patient still tachycardic after 1 L of IV fluids although he does report he feels better. Additional IV fluids will be ordered. Plan to DC patient home with refills on his prescriptions for insulins as well as Zofran. 08/11/19 14:40 Tachycardia has resolved after administration of additional IV fluids. Patient stable for discharge home. ED return precautions discussed. The patient's emergency department workup and current diagnosis were explained to the patient and or family. Follow-up instructions were provided. Medications if prescribed were discussed. Instructions for when to return to the emergency department including specific worrisome symptoms were discussed with the patient and/or family. - Vital Signs Vital signs: Temp Pulse Resp BP Pulse Ox 98.2 F 113 H 20 122/86 H 98 08/11/19 08:59 08/11/19 08:59 08/11/19 13:01 08/11/19 13:00 08/11/19 13:01 - Laboratory Result Diagrams: 08/11/19 09:36 08/11/19 09:36 Laboratory results interpreted by me: 08/11/19 08/11/1919 09:20 09:36 09:36 VBG pH 7.48 H VBG pCO2 30.8 L Glucose 314 H POC Glucose 297 H Calcium 10.7 H AST 15 L Albumin 5.1 H Urine Glucose (UA) Urine Ketones Urine Blood 08/11/19 08/11/19 09:58 10:19 VBG pH VBG pCO2 Glucose POC Glucose 272 H Calcium AST Albumin Urine Glucose (UA) >=500 H Urine Ketones 80 H Urine Blood MODERATE H Discharge - Discharge Clinical Impression: Hyperglycemia, Dehydration Nausea and vomiting Qualifiers: Vomiting type: unspecified Vomiting Intractability: non-intractable Qualified Code(s): R11.2 - Nausea with vomiting, unspecified Condition: Stable Disposition: HOME, SELF-CARE Additional Instructions: You were seen in the emergency department today with concerns for vomiting and elevated blood sugar. Fortunately your blood work does not show any signs of diabetic ketoacidosis. You were given some IV fluids here in the emergency department as well as some antinausea medications. I have also refilled your prescriptions for you. Please follow-up with your primary care provider regarding today's visit. Return to the emergency department with any new or worsening symptoms. Prescriptions: Metformin HCl [Glucophage 500 mg Tablet] 500 mg PO BID #60 tablet Insulin Glargine,Hum.rec.anlog [Lantus Insulin 100 Unit/mL Insulin Pen] 10 unit SUBCUT BID #10 ml Liraglutide [Victoza 2-Yon] 0.6 mg SQ AC #2 each Ondansetron [Zofran Odt 4 mg Tablet] 1 - 2 tab PO Q4H PRN #15 tab.rapdis PRN Reason: For Nausea/Vomiting Forms: Return to Work Referrals: YOHANA SEBASTIAN, AUTOMOTIVE REFINISHER-BC [Primary Care Provider] - Follow up as needed
--- NOTE | 2019-08-11 14:07 | EKG REPORT ---
SEVERITY:- OTHERWISE NORMAL ECG - SINUS TACHYCARDIA : Confirmed by: Ramiro Simeon MD 11-Aug-2019 14:07:01
[2019-08-11 14:50] VITALS: BP 129/81
== END 2019-08-11 14:50 | disposition home or self-care (01) ==
LOC: ER 08:37
DX: E10.65 Type 1 diabetes mellitus with hyperglycemia (principal); Z79.84 Long term (current) use of oral hypoglycemic drugs; R11.2 Nausea with vomiting, unspecified; R00.0 Tachycardia, unspecified; E86.0 Dehydration
CPT/HCPCS: 93005; 99284; 96361; 96374; 36415; 82962; 83690; 85025; 80053; 81001; 82803; 93010; J2405; J7030

== ENCOUNTER 2019-09-22 22:28 | Emergency (ER) | payer SELFPAY ==
[2019-09-22] MEDS ORDERED: NORMAL SALINE 1000 ML 1,000 ML IV ONE (23:26)
--- NOTE | 2019-09-22 23:29 | ER Document Report ---
ED Medical Screen (RME) - General Chief Complaint: Psych Problem Stated Complaint: PSYCH Time Seen by Provider: 09/22/19 23:23 Primary Care Provider: YOHANA SEBASTIAN FNP-BC [Primary Care Provider] - Follow up as needed Notes: HPI: 29-year-old diabetic male presenting to the emergency department with multiple complaints. Patient has a history of suicidal ideation and suicidal attempts with cutting, strangulation, overdosing. Patient states that he moved to the area several months ago has been having difficulty holding a job, being involved in his son's life and managing his life. Has been having increasing thoughts of hurting himself including cutting and overdosing on his insulin. Patient states that his blood sugars have been out of control over the last week. States his blood sugar read high on his monitor for 5 days ago has been greater than 250 the last 2 to 3 days. He reports some nausea with 1-2 episodes of vomiting daily. Reports some gastritis discomfort. Also reports some chest discomfort and shortness of breath. States he has had heart failure in the past. Is concerned he might be in DKA or having heart failure again. Also states that he has been having issues with being homeless I have greeted and performed a rapid initial assessment of this patient. A comprehensive ED assessment and evaluation of the patient, analysis of test results and completion of the medical decision making process will be conducted by additional ED providers PHYSICAL EXAMINATION: GENERAL: Well-appearing, well-nourished and in no acute distress. Disheveled appearance HEAD: Atraumatic, normocephalic. EYES: sclera anicteric, conjunctiva are normal. ENT: Moist mucous membranes. NECK: Normal range of motion LUNGS: Normal work of breathing, lung sounds clear to auscultation HEART: 2+ radial pulses bilaterally, mild tachycardia ABD: limited by positioning for exam in triage. EXTREMITIES: no pitting or edema. No cyanosis. NEUROLOGICAL: No focal neurological deficits. Moves all extremities spontaneously and on command. PSYCH: Depressed mood and affect. Voices thoughts of harming himself SKIN: Warm, Dry, normal turgor, no rashes or lesions noted. TRAVEL OUTSIDE OF THE [place] IN LAST 30 DAYS: No - Related Data Allergies/Adverse Reactions: No Known Allergies Allergy (Verified 03/09/19 10:57) Home Medications: Lantus Past Medical History Endocrine Medical History: Reports: Hx Diabetes Mellitus Type 1, Hx Diabetes Mellitus Type 2 Renal/ Medical History: Denies: Hx Peritoneal Dialysis Psychiatric Medical History: Reports: Hx Depression Past Surgical History: Reports: Other - 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 with a - Immunizations Immunizations up to date: Yes Hx Diphtheria, Pertussis, Tetanus Vaccination: Yes Physical Exam - Vital signs Vitals: Temp Pulse Resp BP Pulse Ox 98.8 F 100 20 128/67 H 97 09/22/19 23:05 09/22/19 23:05 09/22/19 23:05 09/22/19 23:05 09/22/19 23:05 Course - Vital Signs Vital signs: Temp Pulse Resp BP Pulse Ox 98.8 F 100 20 128/67 H 97 09/22/19 23:05 09/22/19 23:05 09/22/19 23:05 09/22/19 23:05 09/22/19 23:05 Doctor's Discharge - Discharge Referrals: YOHANA SEBASTIAN, GRAPPLE OPERATOR-BC [Primary Care Provider] - Follow up as needed
[2019-09-22 23:38] LABS: ABSOLUTE BASOPHILS # (AUTO) 0.1 10^3/uL (0.0-0.2); ABSOLUTE EOSINOPHILS # (AUTO) 0.2 10^3/uL (0.0-0.6); ABSOLUTE LYMPHOCYTES (AUTO) 2.6 10^3/uL (0.5-4.7); ABSOLUTE MONOCYTES (AUTO) 0.8 10^3/uL (0.1-1.4); ABSOLUTE NEUT (AUTO) 6.6 10^3/uL (1.7-8.2); BASOPHILS % (AUTO) 0.5 % (0-2); EOSINOPHILS % (AUTO) 1.6 % (0-6); HEMATOCRIT 42.1 % (37.9-51.0); HEMOGLOBIN 14.7 g/dL (13.5-17.0); LYMPHOCYTES % (AUTO) 25.3 % (13-45); MEAN CORPUSCULAR HEMOGLOBIN 30.5 pg (27.0-33.4); MEAN CORPUSCULAR HGB CONC 34.9 g/dL (32.0-36.0); MEAN CORPUSCULAR VOLUME 88 fl (80-97); MONOCYTES % (AUTO) 7.6 % (3-13); PLATELET COUNT 198 10^3/uL (150-450); RED BLOOD COUNT 4.81 10^6/uL (4.35-5.55); RED CELL DISTRIBUTION WIDTH 11.8 % (11.5-14.0); TOTAL CELLS COUNTED % (AUTO) 100 %; WHITE BLOOD COUNT 10.2 10^3/uL (4.0-10.5)
[2019-09-22 23:45] LABS: APPEARANCE,URINE CLEAR; BILIRUBIN,URINE NEGATIVE (NEGATIVE); COLOR,URINE COLORLESS; GLUCOSE, URINE >=500 mg/dL (NEGATIVE); KETONES,URINE TRACE mg/dL (NEGATIVE); LEUKOCYTE ESTERASE,URINE NEGATIVE (NEGATIVE); NITRITE,URINE NEGATIVE (NEGATIVE); PROTEIN,URINE NEGATIVE (NEGATIVE); URINE SPECIFIC GRAVITY 1.027; UROBILINOGEN,URINE NEGATIVE mg/dL (<2.0)
[2019-09-22 23:52] LABS: ALBUMIN 4.4 g/dL (3.5-5.0); ALKALINE PHOSPHATASE 164 U/L (38-126); ANION GAP 10 (5-19); ASPARTATE AMINO TRANSFERASE 15 U/L (17-59); BILIRUBIN,TOTAL 0.3 mg/dL (0.2-1.3); BLOOD UREA NITROGEN 18 mg/dL (7-20); CALCIUM 9.8 mg/dL (8.4-10.2); CARBON DIOXIDE 28 mmol/L (22-30); CHLORIDE 96 mmol/L (98-107); POTASSIUM 4.4 mmol/L (3.6-5.0)
[2019-09-22 23:55] LABS: URINE BARBITURATES SCREEN NEGATIVE; URINE BENZODIAZEPINES SCREEN NEGATIVE; URINE COCAINE SCREEN NEGATIVE; URINE METHADONE SCREEN NEGATIVE; URINE PHENCYCLIDINE SCREEN NEGATIVE
[2019-09-23] LABS: ACETAMINOPHEN < 10 ug/mL (10-30); ALCOHOL < 10 mg/dL (NONE DETECTED); SALICYLATE < 1.0 mg/dL (2.0-20.0)
[2019-09-23 00:01] LABS: GLUCOSE 498 mg/dL (75-110)
[2019-09-23 00:10] LABS: NT PRO BNP 109 pg/mL (<125)
[2019-09-23 00:15] LABS: TROPONIN I < 0.012 ng/mL
[2019-09-23 00:18] LABS: URINE MARIJUANA (THC) SCREEN UNCONFIRMED POSITIVE
[2019-09-23 00:19] LABS: URINE AMPHETAMINES SCREEN NEGATIVE
[2019-09-23] MEDS ORDERED: INSULIN REG, HUMAN 100 UNIT/ML 3 ML VIAL (PYX) SUBCUT ONE (00:33)
[2019-09-23] MEDS ORDERED: NORMAL SALINE 1000 ML 1,000 ML IV ONE ×2 (00:34→02:45)
[2019-09-23 00:39] LABS: VENOUS BLOOD BASE EXCESS 3.3 mmol/L; VENOUS BLOOD HCO3 28.9 mmol/L (20-32); VENOUS BLOOD PCO2 47.4 mmHg (35-63); VENOUS BLOOD PH 7.4 (7.30-7.42)
[2019-09-23] MEDS ORDERED: HALOPERIDOL 5 MG TABLET PO ONE (00:47)
--- NOTE | 2019-09-23 00:47 | ER Document Report ---
ED General - General Chief Complaint: Psych Problem Stated Complaint: PSYCH Time Seen by Provider: 09/22/19 23:23 Primary Care Provider: YOHANA SEBASTIAN FNP-NINA [Primary Care Provider] - Follow up as needed Notes: Patient is a 29-year-old male that comes emergency department for chief complaint of suicidal ideations. He states that he feels like everything is "crashing down" on him, he states that he barely gets to see his kids, lost his job, has to live with other people, and nothing is working out for him. He states that he was thinking of injecting himself with an overdose of insulin and then when he ran out this morning he was thinking of cutting his wrists open. He denies recreational drugs except marijuana. He denies medical history other than insulin-dependent diabetes, anxiety/depression, bipolar disorder. TRAVEL OUTSIDE OF THE [place] IN LAST 30 DAYS: No - Related Data Allergies/Adverse Reactions: No Known Allergies Allergy (Verified 03/09/19 10:57) Home Medications: Lantus Past Medical History - General Information source: Patient - Social History Smoking Status: Current Every Day Smoker Frequency of alcohol use: None Drug Abuse: Marijuana Lives with: Friend Family History: None Patient has suicidal ideation: No Patient has homicidal ideation: No Endocrine Medical History: Reports: Hx Diabetes Mellitus Type 2 Renal/ Medical History: Denies: Hx Peritoneal Dialysis Psychiatric Medical History: Reports: Hx Depression Past Surgical History: Reports: Other - 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 with a - Immunizations Immunizations up to date: Yes Hx Diphtheria, Pertussis, Tetanus Vaccination: Yes Review of Systems - Review of Systems Constitutional: See HPI EENT: No symptoms reported Cardiovascular: No symptoms reported Respiratory: No symptoms reported Gastrointestinal: See HPI Genitourinary: No symptoms reported Male Genitourinary: No symptoms reported Musculoskeletal: No symptoms reported Skin: No symptoms reported Hematologic/Lymphatic: No symptoms reported Neurological/Psychological: See HPI Physical Exam - Vital signs Vitals: Temp Pulse Resp BP Pulse Ox 98.8 F 100 20 128/67 H 97 09/22/19 23:05 09/22/19 23:05 09/22/19 23:05 09/22/19 23:05 09/22/19 23:05 - Notes Notes: GENERAL: Alert, interacts well. No acute distress. HEAD: Normocephalic, atraumatic. EYES: Pupils equal, round, and reactive to light. Extraocular movements intact. ENT: Oral mucosa dry, tongue midline. Oropharynx unremarkable. Airway patent. NECK: Full range of motion. Supple. Trachea midline. LUNGS: Clear to auscultation bilaterally, no wheezes, rales, or rhonchi. No respiratory distress. HEART: Regular rate and rhythm. No murmur ABDOMEN: Soft, non-tender. Non-distended. EXTREMITIES: Moves all 4 extremities spontaneously. No edema, normal radial and dorsalis pedis pulses bilaterally. No cyanosis. BACK: Mild tenderness over the left trapezius muscle and worsened with range of motion of the left shoulder. Range of motion intact. Strength and distal neurovascular exam intact. No cervical, thoracic, lumbar midline tenderness. No saddle anesthesia, normal distal neurovascular exam. Moves all extremities in full range of motion. NEUROLOGICAL: Alert and oriented x3. Normal speech. Cranial nerves II through XII grossly intact. PSYCH: Speaks rapidly and endlessly, I have to interject to redirect patient from his tangential speech SKIN: Warm, dry, normal turgor. No rashes or lesions noted. Course - Re-evaluation Re-evalutation: Patient is very talkative, he does have dry mucous membranes but he is not tachycardic, hypotensive, or febrile. His physical exam is unremarkable except for some tight muscles in the left trapezius area worsened by range of motion of the left shoulder. Patient is voicing suicidal ideations with a plan, as result patient was placed on IVC paperwork, this was signed by Dr. Boswell. CBC unremarkable, chemistry shows hyperglycemia without acidosis (normal anion gap, normal bicarbonate, normal venous blood gas). Patient received insulin, IV fluids, blood glucose will be downtrending. Blood glucose downtrending well, patient had been given Haldol for anxiety, he is now asking for muscle relaxer for his shoulder and he was provided with this. Patient will not require admission for DKA. Sliding scale for insulin has been ordered, patient is medically cleared pending mental health evaluation. - Vital Signs Vital signs: Temp Pulse Resp BP Pulse Ox 98.4 F 101 H 18 133/93 H 97 09/23/19 04:50 09/23/19 04:50 09/23/19 04:50 09/23/19 04:50 09/23/19 04:50 - Laboratory Result Diagrams: 09/22/19 23:20 09/22/19 23:20 Laboratory results interpreted by me: 09/22/19 09/22/19 09/23/19 23:20 23:20 02:09 Sodium 134.2 L Chloride 96 L Glucose 498 H* POC Glucose 448 H* AST 15 L Alkaline Phosphatase 164 H Urine Glucose (UA) >=500 H Urine Ketones TRACE H Urine Blood SMALL H Salicylates < 1.0 L Acetaminophen < 10 L 09/23/19 03:38 Sodium Chloride Glucose POC Glucose 321 H AST Alkaline Phosphatase Urine Glucose (UA) Urine Ketones Urine Blood Salicylates Acetaminophen - EKG Interpretation by Me Additional EKG results interpreted by me: EKG shows sinus rhythm at a rate of 94, normal axis, no T wave inversions or ST segment changes in consecutive leads, QTC of 421 Discharge - Discharge Clinical Impression: Suicidal ideations, Uncontrolled insulin dependent diabetes mellitus Condition: Stable Disposition: PSYCH HOSP/UNIT Referrals: YOHANA SEBASTIAN, CHARGING OPERATOR-BC [Primary Care Provider] - Follow up as needed
[2019-09-23] MEDS ORDERED: CYCLOBENZAPRINE HCL 10 MG TABLET PO ONE (02:45)
[2019-09-23] MEDS ORDERED: GLUCAGON,HUMAN RECOMB 1 MG INJ IM PRN (04:29)
[2019-09-23] MEDS ORDERED: DEXTROSE 40% GEL 15 GM TUBE PO PRN ×2 (04:29)
[2019-09-23] MEDS ORDERED: DEXTROSE 50%-WATER 25 GM/50 ML DISP.SYRIN IV PRN ×2 (04:29)
[2019-09-23] MEDS: INSULIN REG, HUMAN 100 UNIT/ML 3 ML VIAL (PYX) SUBCUT SCH ×2 (06:25→11:02)
--- NOTE | 2019-09-23 07:24 | EKG REPORT ---
SEVERITY:- NORMAL ECG - SINUS RHYTHM : Confirmed by: Ramiro Simeon MD 23-Sep-2019 07:23:49
--- NOTE | 2019-09-23 12:33 | ER Document Report ---
Doctor's Note Notes: 09/23/19 12:33 PHYSICAL EXAMINATION: GENERAL: Appears well, healthy, well-nourished, no acute distress. LUNGS: Equal breath sounds bilaterally and clear to auscultation. No wheezes rales or rhonchi. CARDIOVASCULAR: S1-S2, regular rate, regular rhythm. Radial pulses 2+, normal. ABDOMEN: Normoactive bowel sounds. Soft, nontender, no guarding, no rebound tenderness, and no masses palpated. PSYCH: Tearful, normal affect. 09/23/19 13:30 At this time, the patient feels suicidal, but he has no actual plan. He is wor ried about not getting what he needs. 09/23/19 14:[address] Wiseman, and he will calculate insulin, as what the patient needs. 09/23/19 14:[address] Wiseman and he is recommends Lantus 10 units BID and Metformin 500 mg twice daily. 09/23/19 14:57 I spoke with Charis, the nurse over at [facility]. She says that she will not have the patient admitted over there unless he has a bottle of sliding scale insulin with him. I spoke to the patient about this and he states that he can get the regular insulin [id number] at [facility]. I instructed him to make sure that he does this. He is in agreement with this plan. He will go and get the medication and if he is starting to feel down, he will go over to [facility]. Yves from [facility] is in agreement with this plan. 09/23/19 15:31 Apparently we do not have Lantus pens, I asked the patient and clarified with him to see if metformin and regular sliding scale insulin works for him and he states that yes it does. I instructed him to get a bottle of regular insulin from [facility] and I sent his metformin to [facility]. He is to got to [facility] after he picks up his insulin. He feels more hopeful now that we have developed a plan for him. He received information on resources. He is thankful for his care.
[2019-09-23] MEDS ORDERED: HYDROXYZINE PAMOATE 50 MG CAPSULE PO ONE (14:49)
--- NOTE | 2019-09-23 14:59 | PSYCHOLOGICAL NOTE ---
<LANCE DURÁN - Last Filed: 09/23/19 14:56> Psych Note - Psych Note Date seen by psych provider: 09/23/19 Time seen by psych provider: 08:15 Psych Note: Reason For Consult:Suicidal ideation Consent Permissions:none provided Patient disclosed that his ex- drove him to [facility] because he was feeling suicidal. He states that he has been feeling like this for 1-1/2 to 2 weeks because his depression and unstable living conditions. He reports that the last time he felt this way was 1 to 2 months ago however is not currently on any medications. Patient reports that last night they were just passing thoughts but 2 days ago was when he was thinking of different plans. Patient reports he had thoughts of going into the linder and taking his life by either "slitting my wrist, hanging myself, or putting a bullet into my head like my father." He reports he does not own a gun. Clinician notes patient had previously reported to attending evening physician that he would overdose on his insulin or use the needles to harm himself; patient does not have any diabetic medications currently. Patient reports he has a diagnosis of "bipolar 2, major depressive disorder, social and generalized anxiety disorder, IED, OCD, PTSD, and BPD." He reports that he previously had therapeutic services however he felt that they were not "benefiting me." He is currently homeless and "couch surfing." He confirms he does not have a job currently because approximately 2 weeks ago. Patient denies current thoughts of wanting to harm himself and states that he is only suffering from anxiety currently. Clinician contacted [facility] about possible voluntary treatment. They are unable to assist the patient without the patient bringing his diabetic medications. Patient is alert and orientated to person, place, time and circumstance. Mood is dysphoric with blunted and tearful affect. Patient reports passive suicidal ideation ie no plans means or intent. He denies homicidal ideation. Delusions are absent and behaviors congruent with an intact reality based presentation ie organized and linear thought process. Eye contact is poor. Conversational speech is within normal rate, tone and prosody. Intellectual abilities appear to be within the average range. Attention and concentration are good. Insight, judgment, impulse control are fair. Clinician and attending provider went into patient's room to discuss plan of care. Patient reports he is very thankful for all the assistance he is received. He disclosed in the past he has used [facility] on [address] to pickle water pump operator [id number] insulin for $25. He identifies talking to some friends to see if they can assist in helping him obtain some insulin so he can go to voluntary treatment. He reports he feels comfortable with plan of care to eit her call mobile crisis, self admit to [facility] if he has insulin, or return to the [facility] if his thoughts of harming himself return. Patient smiles and engages appropriately with clinician and provider. Impression\\plan: Patient is recommended for rescind of IVC and is cleared from acute psychiatric services. Patient does not meet IVC criteria per [place] GS 122C. Patient discloses chronic passive suicidal ideation i.e. no plans means or intent; denies current. Patient is currently homeless and is having difficulty financially obtaining his medications. Patient is unable to go voluntarily to the [facility] because he does not have his diabetic medications and cannot afford to fill a prescription. Patient was provided local resource list of area providers including mobile crisis contact information. Dr. Chatman was consulted to care management of this patient; attending physicians in agreement with recommendations and disposition. <YARI CHATMAN - Last Filed: 09/23/19 23:42> Psych Note - Psych Note Psych Note: [facility] is [facility] for outpatient oversight and assistance with diabetic medication.
[2019-09-23 16:05] VITALS: BP 130/70
[2019-09-23] MEDS ORDERED: INSULIN GLARGINE,HUM.REC.ANLOG 1,000 UNIT/10 ML VIAL SUBCUT SCH (22:00)
== END 2019-09-23 16:04 | disposition home or self-care (01) ==
LOC: ER 22:28
DX: R45.851 Suicidal ideations (principal); E11.9 Type 2 diabetes mellitus without complications; F29 Unspecified psychosis not due to a substance or known physiological condition; Z79.84 Long term (current) use of oral hypoglycemic drugs; F17.200 Nicotine dependence, unspecified, uncomplicated
CPT/HCPCS: 93005; 99285; 96360; 96361; 36415; 82962; 80307 ×4; 85025; 80053; 81001; 84484; 82803; 83880; 93010; J1815; J7030